=== PATIENT | female | born 1960 | race Caucasian/White ===

== ENCOUNTER 2020-05-17 14:34 | Emergency (ER) | payer BC ==
[2020-05-17 15:50] LABS: Absolute Lymphocytes (CBC) 1.4 K/uL (0.7-4.9); Basophils % 0.6 % (0-1.3); Hematocrit 40.9 % (36.0-45.0); Lymphocytes % 23.3 % (15.3-44.8); MPV 7.9 fL (7.6-11.3); RBC Red Blood Cell Count 4.12 M/uL (3.86-4.86)
--- NOTE | 2020-05-17 16:05 | RAD REPORT ---
EXAM DESCRIPTION: CT - Head Brain Wo Cont - 05/17/2020 3:32 pm CLINICAL HISTORY: Headache COMPARISON: None. TECHNIQUE: Computed axial tomography of the head was obtained. IV contrast was not requested. All CT scans are performed using dose optimization technique as appropriate and may include automated exposure control or mA/KV adjustment according to patient size. FINDINGS: An intracranial bleed is not seen . The ventricles are normal in caliber. No extra-axial fluid collection is noted. Fluid within the sinuses/ mastoids is not seen. IMPRESSION: No acute intracranial abnormality is seen. If patient's symptoms persist MRI of the bra in would be recommended.
--- NOTE | 2020-05-17 16:06 | RAD REPORT ---
EXAM DESCRIPTION: Nan Single View05/17/2020 3:17 pm CLINICAL HISTORY: sob COMPARISON: none FINDINGS: The lungs appear clear of acute infiltrate. The heart is normal size IMPRESSION: No acute abnormalities displayed
[2020-05-17 16:11] LABS: ALT/SGPT 62 U/L (12-78); AST/SGOT 58 U/L (15-37); Albumin 3.6 g/dL (3.4-5.0); Alkaline Phosphatase 50 U/L (45-117); BUN Blood Urea Nitrogen 17 mg/dL (7-18); Bicarbonate 21 mmol/L (21-32); Bilirubin Direct < 0.1 mg/dL (0-0.2); Bilirubin Total 0.3 mg/dL (0.2-1.0); Glucose Level 76 mg/dL (74-106); Magnesium 1.8 mg/dL (1.8-2.4); NT PRO-BNP 20 pg/mL (<125); Potassium 3.8 mmol/L (3.5-5.1); Protein, Total 7.1 g/dL (6.4-8.2); Sodium Level 141 mmol/L (136-145); Troponin (Emerg Dept Use Only) < 0.02 ng/mL (0.0-0.045)
--- NOTE | 2020-05-17 16:31 | EDPHYS ---
Physician Documentation [facility] Name: Veronica Stevens Age: 59 yrs Sex: Female : 1960 Arrival Date: 05/17/2020 Time: 14:39 Bed 20 Private MD: ED Physician Vincent Castillo HPI: 05/17 15:16 This 59 yrs old Female presents to ER via EMS with complaints of Anxiety. alexi 15:16 The patient complains of pain to the top of head, forehead, left frontal area and right alexi frontal area. The patient describes the headache as aching. Onset: The symptoms/episode began/occurred just prior to arrival. The patient presents to the emergency department with anxiety. Onset: The symptoms/episode began/occurred just prior to arrival, today. Past psychiatric history: none. chavez and then anxiety, bilateral leg pain,no cp and sob, very shaky . Associated signs and symptoms: The patient has no apparent associated signs or symptoms. Headache History: The patient has had previous headaches and this one is similar to previous episodes. Historical: - Allergies: 14:48 No Known Allergies; ca1 - Home Meds: 14:48 Lisinopril Oral [Active]; ca1 - PMHx: 14:48 Hypertension; colon Ca; CVA; ca1 - Immunization history:: Adult Immunizations up to date. - Social history:: Smoking status: Patient denies any tobacco usage or history of. - Family history:: not pertinent. ROS: 15:16 Constitutional: Negative for fever, chills, and weight loss, Eyes: Negative for injury, alexi pain, redness, and discharge, ENT: Negative for injury, pain, and discharge, Neck: Negative for injury, pain, and swelling, Cardiovascular: Negative for chest pain, palpitations, and edema, Respiratory: Negative for shortness of breath, cough, wheezing, and pleuritic chest pain, Abdomen/GI: Negative for abdominal pain, nausea, vomiting, diarrhea, and constipation, Back: Negative for injury and pain, : Negative for injury, bleeding, discharge, and swelling, MS/Extremity: Negative for injury and deformity, Skin: Negative for injury, rash, and discoloration, Allergy/Immunology: Negative for hives, rash, and allergies, Endocrine: Negative for neck swelling, polydipsia, polyuria, polyphagia, and marked weight changes. 15:16 Neuro: Positive for headache. 15:16 Psych: Positive for anxiety. Exam: 15:16 Constitutional: This is a well developed, well nourished patient who is awake, alert, alexi and in no acute distress. Head/Face: Normocephalic, atraumatic. Eyes: Pupils equal round and reactive to light, extra-ocular motions intact. Lids and lashes normal. Conjunctiva and sclera are non-icteric and not injected. Cornea within normal limits. Periorbital areas with no swelling, redness, or edema. ENT: Nares patent. No nasal discharge, no septal abnormalities noted. Tympanic membranes are normal and external auditory canals are clear. Oropharynx with no redness, swelling, or masses, exudates, or evidence of obstruction, uvula midline. Mucous membranes moist. Neck: Trachea midline, no thyromegaly or masses palpated, and no cervical lymphadenopathy. Supple, full range of motion without nuchal rigidity, or vertebral point tenderness. No Meningismus. Chest/axilla: Normal chest wall appearance and motion. Nontender with no deformity. No lesions are appreciated. Cardiovascular: Regular rate and rhythm with a normal S1 and S2. No gallops, murmurs, or rubs. Normal PMI, no JVD. No pulse deficits. Respiratory: Lungs have equal breath sounds bilaterally, clear to auscultation and percussion. No rales, rhonchi or wheezes noted. No increased work of breathing, no retractions or nasal flaring. Abdomen/GI: Soft, non-tender, with normal bowel sounds. No distension or tympany. No guarding or rebound. No evidence of tenderness throughout. Back: No spinal tenderness. No costovertebral tenderness. Full range of motion. Skin: Warm, dry with normal turgor. Normal color with no rashes, no lesions, and no evidence of cellulitis. MS/ Extremity: Pulses equal, no cyanosis. Neurovascular intact. Full, normal range of motion. Neuro: Awake and alert, GCS 15, oriented to person, place, time, and situation. Cranial nerves II-XII grossly intact. Motor strength 5/5 in all extremities. Sensory grossly intact. Cerebellar exam normal. Normal gait. Psych: Awake, alert, with orientation to person, place and time. Behavior, mood, and affect are within normal limits. 15:16 Musculoskeletal/extremity: Extremities: all appear grossly normal, with no appreciated pain with palpation, ROM: intact in all extremities, full active range of motion, full passive range of motion, Circulation is intact in all extremities. Sensation intact. Compartment Syndrome exam of affected extremity: is normal. DVT Exam: No signs of deep vein thrombosis. no pain, no swelling, no tenderness, negative Homans' sign noted on exam, no appreciated bluish discoloration, no erythema, no increased warmth. 15:54 ECG was reviewed by the Attending Physician. [facility] Vital Signs: 14:54 BP 140 / 98; Pulse 89; Resp 17 S; Temp 98.4(O); Pulse Ox 96% on R/A; Weight 61.23 kg ca1 (R); Height 5 ft. 0 in. (152.40 cm) (R); Pain 0/10; 15:57 BP 134 / 84; Pulse 88; Resp 16 S; Pulse Ox 96% on R/A; ca1 16:46 BP 127 / 86; Pulse 89; Resp 17 S; Pulse Ox 96% on R/A; ca1 14:54 Body Mass Index 26.37 (61.23 kg, 152.40 cm) ca1 [place] Coma Score: 15:19 Eye Response: spontaneous(4). Verbal Response: oriented(5). Motor Response: obeys [facility] commands(6). Total: 15. MDM: 14:43 Patient medically screened. [facility] 15:19 Differential diagnosis: cluster headache, cerebral vascular accident, acute psychotic alexi break, intracerebral hemorrhage, tension headache, vasomotor headache. Differential Diagnosis altered mental status. Data reviewed: vital signs, nurses notes, lab test result(s), EKG, radiologic studies, CT scan, plain films. Data interpreted: monitoring tech: rate is 89 beats/min, rhythm is regular, Pulse oximetry: on room air is 96 %. Test interpretation: by ED physician or midlevel provider: ECG, plain radiologic studies. Counseling: I had a detailed discussion with the patient and/or guardian regarding: the historical points, exam findings, and any diagnostic results supporting the discharge/admit diagnosis, lab results, radiology results, the need for outpatient follow up, for definitive care, an qa test analyst. 15:47 ED course: pt without complaint, no anxious, encouraged follow up, continue usual meds. [facility] 05/17 14:59 Order name: Basic Metabolic Panel; Complete Time: 16:26 [facility] 05/17 14:59 Order name: CBC with Diff; Complete Time: 15:59 [facility] 05/17 14:59 Order name: LFT's; Complete Time: 16: [facility] 05/17 14:59 Order name: Magnesium; Complete Time: 16:26 [facility] 05/17 14:59 Order name: NT PRO-BNP; Complete Time: 16:26 [facility] 05/17 14:59 Order name: Troponin (emerg Dept Use Only); Complete Time: 16: [facility] 05/17 14:59 Order name: XRAY Chest (1 view); Complete Time: 16: [facility] 05/17 14:59 Order name: EKG; Complete Time: 14:59 [facility] 05/17 14:59 Order name: Cardiac monitoring; Complete Time: 15:55 [facility] 05/17 14:59 Order name: EKG - Nurse/Tech; Complete Time: 15:55 [facility] 05/17 14:59 Order name: IV Saline Lock; Complete Time: 15:55 [facility] 05/17 14:59 Order name: Labs collected and sent; Complete Time: 15:55 [facility] 05/17 14:59 Order name: O2 Per Protocol; Complete Time: 15:55 [facility] 05/17 15:15 Order name: CT Head Brain wo Cont; Complete Time: 16: [facility] 05/17 14:59 Order name: O2 Sat Monitoring; Complete Time: 15:55 alexi EC:54 Rate is 81 beats/min. Rhythm is regular. QRS [place] is Normal. AL interval is normal. QRS alexi interval is normal. QT interval is normal. No Q waves. T waves are Normal. No ST changes noted. Clinical impression: NSR w/ Non-specific ST/T Changes and No evidence of ischemia. Interpreted by me. Reviewed by me. Administered Medications: No medications were administered Disposition: 05/17/20 16:30 Discharged to Home. Impression: Headache, Anxiety disorder, unspecified. - Condition is Stable. - Discharge Instructions: Panic Attacks, General Headache Without Cause, Panic Attacks, [id number], General Headache Without Cause, [id number]-uy-Emua, Generalized Anxiety Disorder. - Prescriptions for Hydroxyzine HCl 25 mg Oral Tablet - take 1 tablet by ORAL route every 6 hours As needed; 30 tablet. - Medication Reconciliation Form, Thank You Letter, Antibiotic Education, Prescription Opioid Use form. - Follow up: Private Physician; When: 2 - 3 days; Reason: Recheck today's complaints, Continuance of care, Re-evaluation by your physician. - Problem is new. - Symptoms have improved. Signatures: Dispatcher [employer] Vincent Lopez MD MD cha Acob, Cheryl, RN RN ca1 Corrections: (The following items were deleted from the chart) 16:47 16:30 05/17/2020 16:30 Discharged to Home. Impression: Headache; Anxiety disorder, ca1 unspecified. Condition is Stable. Forms are Medication Reconciliation Form, Thank You Letter, Antibiotic Education, Prescription Opioid Use. Follow up: Private Physician; When: 2 - 3 days; Reason: Recheck today's complaints, Continuance of care, Re-evaluation by your physician. Problem is new. Symptoms have improved. alexi
--- NOTE | 2020-05-17 16:31 | ER ---
Nurse's Notes [facility] Name: Veronica Stevens Age: 59 yrs Sex: Female : 1960 Arrival Date: 05/17/2020 Time: 14:39 Bed 20 Private MD: Diagnosis: Headache;Anxiety disorder, unspecified Presentation: 05/17 14:40 Chief complaint: EMS states: C/O AMS and SOB. Upon arrival at the scene has full body ca1 muscle cramps and hyperventilating. Denies hx of anxiety. Hx of CVA and colon cancer. VS BP 162/100, HR 115, BGL 105, SPO2 99% RA. Negative on stroke scale. She denies recollection of first 40 minutes of interaction with us. Given 2 mg Ativan IV. G20 LFA. Coronavirus screen: Client denies travel out of the [place] in the last 14 days. At this time, the client does not indicate any symptoms associated with coronavirus-19. Ebola Screen: Patient negative for fever greater than or equal to 101.5 degrees Fahrenheit, and additional compatible Ebola Virus Disease symptoms Patient denies exposure to infectious person. Patient denies travel to an Ebola-affected area in the 21 days before illness onset. No symptoms or risks identified at this time. Initial Sepsis Screen: Does the patient meet any 2 criteria? No. Patient's initial sepsis screen is negative. Does the patient have a suspected source of infection? No. Patient's initial sepsis screen is negative. Risk Assessment: Do you want to hurt yourself or someone else? Patient reports no desire to harm self or others. Onset of symptoms was May 17, 2020. Care prior to arrival: Medication(s) given: Normal saline infusion, 500 mL, Ativan 2mg IV initiated. 20 GA, in the left forearm, Glucose check: 105. 14:40 Method Of Arrival: EMS: [facility] ca1 14:40 Acuity: PUSHPA 3 ca1 Triage Assessment: 14:54 General: Appears in no apparent distress. comfortable, Behavior is calm, cooperative, ca1 appropriate for age. Pain: Denies pain. EENT: No deficits noted. No signs and/or symptoms were reported regarding the EENT system. Neuro: Level of Consciousness is awake, alert, obeys commands, Oriented to person, place, time, situation, Appropriate for age. Neuro: Forming Process Worker are equal bilaterally Moves all extremities. Speech is normal, Facial symmetry appears normal, Pupils are PERRLA, Intact. Cardiovascular: Heart tones S1 S2 present Capillary refill < 3 seconds Patient's skin is warm and dry. Respiratory: Airway is patent Respiratory effort is even, unlabored, Respiratory pattern is regular, symmetrical. GI: Abdomen is round non-distended, Bowel sounds present X 4 quads. Abd is soft and non tender X 4 quads. : No deficits noted. No signs and/or symptoms were reported regarding the genitourinary system. Derm: Skin is intact, is healthy with good turgor, Skin is pink, warm \T\ dry. Musculoskeletal: Circulation, motion, and sensation intact. Capillary refill < 3 seconds. Historical: - Allergies: 14:48 No Known Allergies; ca1 - Home Meds: 14:48 Lisinopril Oral [Active]; ca1 - PMHx: 14:48 Hypertension; colon Ca; CVA; ca1 - Immunization history:: Adult Immunizations up to date. - Social history:: Smoking status: Patient denies any tobacco usage or history of. - Family history:: not pertinent. Screenin:56 Abuse screen: Denies threats or abuse. Denies injuries from another. Nutritional ca1 screening: No deficits noted. Tuberculosis screening: No symptoms or risk factors identified. Fall Risk IV access (20 points). Assessment: 14:56 Reassessment: see triage notes. ca1 15:43 Reassessment: Patient appears in no apparent distress at this time. Patient and/or ca1 family updated on plan of care and expected duration. Pain level reassessed. Patient is alert, oriented x 3, equal unlabored respirations, skin warm/dry/pink. 16:46 Reassessment: Patient appears in no apparent distress at this time. Patient is alert, ca1 oriented x 3, equal unlabored respirations, skin warm/dry/pink. Patient states feeling better. Vital Signs: 14:54 BP 140 / 98; Pulse 89; Resp 17 S; Temp 98.4(O); Pulse Ox 96% on R/A; Weight 61.23 kg ca1 (R); Height 5 ft. 0 in. (152.40 cm) (R); Pain 0/10; 15:57 BP 134 / 84; Pulse 88; Resp 16 S; Pulse Ox 96% on R/A; ca1 16:46 BP 127 / 86; Pulse 89; Resp 17 S; Pulse Ox 96% on R/A; ca1 14:54 Body Mass Index 26.37 (61.23 kg, 152.40 cm) ca1 [place] Coma Score: 15:19 Eye Response: spontaneous(4). Verbal Response: oriented(5). Motor Response: obeys [facility] commands(6). Total: 15. ED Course: 14:39 Patient arrived in ED. ca1 14:43 Vincent Castillo MD is Attending Physician. [facility] 14:48 Triage completed. ca1 14:48 Arm band placed on right wrist. ca1 14:50 Marcie Childs, GLORIA is Primary Nurse. ca1 14:56 Patient has correct armband on for positive identification. Bed in low position. Call ca1 light in reach. Side rails up X2. Pulse ox on. NIBP on. Warm blanket given. 15:00 No provider procedures requiring assistance completed. Maintain EMS IV. Dressing ca1 intact. Good blood return noted. Site clean \T\ dry. Gauge \T\ site: g20 LFA. 15:18 XRAY Chest (1 view) In Process Unspecified. EDMS 15:32 CT Head Brain wo Cont In Process Unspecified. EDMS 15:45 Initial lab(s) drawn, by ED staff, sent to lab. ca1 16:47 IV discontinued, intact, bleeding controlled, No redness/swelling at site. Pressure ca1 dressing applied. Administered Medications: No medications were administered Outcome: 16:30 Discharge ordered by . [facility] 16:47 Discharged to home ambulatory, with family. ca1 16:47 Condition: stable 16:47 Discharge instructions given to patient, Instructed on discharge instructions, follow up and referral plans. no drinking with medication, no driving heavy equipment, medication usage, Demonstrated understanding of instructions, follow-up care, medications, Prescriptions given X 1. 16:47 Patient left the ED. ca1 Signatures: Dispatcher [employer] EDMS Vincent Castillo MD MD cha Acob, Cheryl, GLORIA RN ca1 Corrections: (The following items were deleted from the chart) 14:50 14:40 Care prior to arrival: Medication(s) given: Ativan 2mg IV initiated. 20 GA, in ca1 the left forearm, Glucose check: 105 ca1 15:56 15:40 Initial lab(s) drawn, by ED staff, sent to lab. ca1 ca1
== END 2020-05-17 16:47 | disposition home or self-care (01) ==
LOC: ER 14:34
DX: F41.9 Anxiety disorder, unspecified (principal); I10 Essential (primary) hypertension; Z85.038 Personal history of other malignant neoplasm of large intestine; Z86.73 Personal history of transient ischemic attack (TIA), and cerebral infarction without residual deficits
CPT/HCPCS: 36415; 70450; 71045; 80048; 80076; 83735; 83880; 84484; 85025; 93005; 99284

== ENCOUNTER 2021-08-23 08:00 | Emergency (ER) | payer BC ==
--- OUTSIDE RECORDS SUMMARY | 2021-08-23 08:03 | XMS REPORT | Continuity of Care Document ---
:1960 Author Organization [facility] t Address [address] [place] [address] Care Team Providers Name Role Phone LAKEISHA Attending Clinician Unavailable MD LIAM SUAZO Attending Clinician Unavailable Argenis Banerjee Attending Clinician Unavailable LAKEISHA Admitting Clinician Unavailable MD LIAM SUAZO Admitting Clinician Unavailable Problems This patient has no known problems. Allergies, Adverse Reactions, Alerts This patient has no known allergies or adverse reactions. Medications This patient has no known medications. Procedures This patient has no known procedures. Encounters Start End Encounter Admission Attending Care Care Encounter Source Date/Time Date/Time Type Type Clinicians Facility Department ID 2021-05-14 2021-05-15 Outpatient LAKEISHA [facility] [id number] [place] 00:00:00 00:00:00 [facility] [address] 2020-02-11 2020-02-11 Outpatient REGGIE Banerjee [id number] [facility] 08:33:00 08:33:[address] [id number] Results Test Description Test Time Test Comments Results Result Comments Source SARS-CoV-2 (COVID-19) RNA [Presence] in Respiratory sp ecimen by 2021-05-14 21:58:10 BONNY with probe detection Test Item Value Reference Range Interpretation Comme nts SARS-CoV-2 (COVID-19) RNA [Presence] in Respiratory Not detected No t-Detected specimen by BONNY with probe detection (test code = 56615-5) Whether patient is employed in a healthcare setting (test code = 34151-6) Whether the patient has symptoms related to condition of interest (test code = 57080-9) Patient was hospitalized because of this condition (test code = 12237-4) Whether the patient was admitted to intensive care unit (ICU) for condition of interest (test code = 85581-6) Whether patient resides in a congregate care setting (test code = 43516-0)
[2021-08-23] MEDS ORDERED: ONDANSETRON 4 MG/2 ML VIAL ONE (08:50)
[2021-08-23] MEDS ORDERED: LORazepam 2 MG/ML VIAL ONE (08:50)
[2021-08-23] MEDS ORDERED: FOLIC ACID 1 MG, MULTIVITAMINS INJ 10 ML, THIAMINE HCL 100 MG in NA CHLORIDE 0.9% 1,000 ML IV ONE (09:00)
[2021-08-23 09:02] LABS: Absolute Lymphocytes (CBC) 0.9 K/uL (0.7-4.9); Basophils % 0.3 % (0-1.3); Hematocrit 46.2 % (36.0-45.0); Lymphocytes % 7.8 % (15.3-44.8); MPV 8.1 fL (7.6-11.3); RBC Red Blood Cell Count 4.76 M/uL (3.86-4.86)
[2021-08-23 09:08] LABS: Protime INR 0.96
[2021-08-23 09:20] LABS: ALT/SGPT 31 U/L (12-78); AST/SGOT 43 U/L (15-37); Albumin 4.1 g/dL (3.4-5.0); Alkaline Phosphatase 77 U/L (45-117); BUN Blood Urea Nitrogen 16 mg/dL (7-18); Bicarbonate 21 mmol/L (21-32); Bilirubin Direct 0.3 mg/dL (0-0.2); Bilirubin Total 0.8 mg/dL (0.2-1.0); Glucose Level 109 mg/dL (74-106); Potassium 3.6 mmol/L (3.5-5.1); Protein, Total 8.3 g/dL (6.4-8.2); Sodium Level 139 mmol/L (136-145)
[2021-08-23] MEDS ORDERED: NA CHLORIDE 0.9% 1,000 ML ONE (09:39)
[2021-08-23] MEDS ORDERED: FAMOTIDINE 20 MG/2 ML VIAL IV ONE (10:09)
--- NOTE | 2021-08-23 12:01 | EDPHYS ---
Physician Documentation [facility] Name: Veronica Stevens Age: 60 yrs Sex: Female : 1960 Arrival Date: 08/23/2021 Time: 08:01 Bed 14 Private MD: ED Physician Scott Russo HPI: 08/23 08:59 This 60 yrs old Female presents to ER via Wheelchair with complaints of Dehydration, pm1 Alcohol Withdrawal. 08:59 The patient presents to the emergency department with a history of substance abuse, pm1 Type: Alcohol, 0.5 mini bottle of rum per day, Last drink was last night. Associated signs and symptoms: Pertinent positives; abdominal pain, nausea, vomiting, Pertinent negatives: chest pain, fever, homicidal ideation, shortness of breath, suicide ideation. Severity of symptoms: in the emergency department the symptoms are worse threw away her alcohol. The patient has experienced a previous episode, approximately 1 years ago. The patient has not recently seen a physician. Patient reports that she wants to stop drinking alcohol. Historical: - Allergies: 08:34 Codeine; iw - Home Meds: 08:34 Lisinopril Oral [Active]; iw - PMHx: 08:34 COLON CA; CVA; Hypertension; iw - PSHx: 08:34 section; iw - Immunization history:: Client reports having NOT received the Covid vaccine. - Social history:: Smoking status: Patient denies any tobacco usage or history of. Patient uses alcohol, on a daily basis. ROS: 08:59 Constitutional: Negative for fever, chills, and weight loss, Cardiovascular: Negative pm1 for chest pain, palpitations, and edema, Respiratory: Negative for shortness of breath, cough, wheezing, and pleuritic chest pain. 08:59 MS/Extremity: Negative for injury and deformity, Skin: Negative for injury, rash, and discoloration, Neuro: Negative for headache, weakness, numbness, tingling, and seizure. 08:59 Abdomen/GI: Positive for abdominal pain, nausea and vomiting, Negative for diarrhea, constipation. 08:59 All other systems are negative. Exam: 08:59 Constitutional: This is a well developed, well nourished patient who is awake, alert, pm1 and in no acute distress. Head/Face: Normocephalic, atraumatic. 08:59 Back: No spinal tenderness. No costovertebral tenderness. Full range of motion. Skin: Warm, dry with normal turgor. Normal color with no rashes, no lesions, and no evidence of cellulitis. MS/ Extremity: Pulses equal, no cyanosis. Neurovascular intact. Full, normal range of motion. 08:59 Eyes: Exam is negative for acute changes, Extraocular movements: no acute changes, Conjunctiva: no acute changes, no injection, Sclera: no acute changes, icterus, is not appreciated. 08:59 Cardiovascular: Rate: tachycardic, actual rate is 108 bpm, Rhythm: regular, Pulses: no pulse deficits are appreciated, Heart sounds: normal, normal S1and S2. 08:59 Respiratory: Exam negative for acute changes, respiratory distress, shortness of breath, Breath sounds: are clear throughout. 08:59 Abdomen/GI: Inspection: abdomen appears normal, Bowel sounds: normal, Palpation: abdomen is soft and non-tender. 08:59 Neuro: Exam negative for acute changes, Orientation: is normal, Mentation: is normal, Motor: moves all fours. Vital Signs: 08:32 BP 122 / 106; Pulse 108; Resp 18; Temp 97.6; Pulse Ox 100% on R/A; Weight 68.04 kg; iw Height 5 ft. 0 in. (152.40 cm); 09:30 BP 157 / 95; Pulse 98; Resp 22; Temp 97.6(C); Pulse Ox 100% on R/A; sl2 10:00 BP 143 / 92; Pulse 101; Resp 20; Pulse Ox 100% on R/A; sl2 10:15 BP 143 / 92; Pulse 92; Resp 20; Temp 97.8; Pulse Ox 100% ; sl2 11:15 BP 145 / 90; Pulse 91; Resp 18; Pulse Ox 99% on R/A; sl2 12:15 BP 150 / 85; Pulse 88; Resp 18; Temp 97.9(O); Pulse Ox 100% on R/A; sl2 08:32 Body Mass Index 29.29 (68.04 kg, 152.40 cm) iw MDM: 08:40 Patient medically screened. pm1 10:18 Data reviewed: vital signs. Data interpreted: Pulse oximetry: on room air is 100 %. pm1 Interpretation: normal. 11:26 ED course: Burning abdominal pain resolved with Pepcid. Patient feels better and would pm1 like to go home. Will discharge the patient after completion of IV fluids. Patient has been drinking more than her usual single cocktail drink per night due to work stress for the past 3 weeks. She normally has one cocktail drink per night. Patient wants to stop drinking and has taken medications in the past to stop. She would like medication to help her stop drinking, therefore will prescribe Librium taper. 11:26 Counseling: I had a detailed discussion with the patient and/or guardian regarding: the pm1 historical points, exam findings, and any diagnostic results supporting the discharge/admit diagnosis, lab results, the need for outpatient follow up, rehabilitation center, to return to the emergency department if symptoms worsen or persist or if there are any questions or concerns that arise at home. 08/23 08:42 Order name: Acetaminophen; Complete Time: 09:36 pm1 08/23 08:42 Order name: Basic Metabolic Panel; Complete Time: 09:36 pm1 08/23 08:42 Order name: CBC with Diff; Complete Time: 09:03 pm1 08/23 08:42 Order name: ETOH Level; Complete Time: 09:36 pm1 08/23 08:42 Order name: Hepatic Function; Complete Time: 09:36 pm1 08/23 08:42 Order name: PT-INR; Complete Time: 09:09 pm1 08/23 08:42 Order name: Ptt, Activated; Complete Time: 09:09 pm1 08/23 08:42 Order name: Salicylate; Complete Time: 09:39 pm1 08/23 08:42 Order name: Urine Drug Screen pm1 08/23 08:42 Order name: EKG; Complete Time: 08:43 pm1 08/23 08:42 Order name: EKG - Nurse/Tech; Complete Time: 08:58 pm1 08/23 08:42 Order name: IV Saline Lock; Complete Time: 08:57 pm1 08/23 08:42 Order name: Labs collected and sent; Complete Time: 08:57 pm1 Administered Medications: 09:01 Drug: Ativan (LORazepam) 2 mg Route: IVP; Site: right antecubital; iw 09:59 Follow up: Response: No adverse reaction; Anxiety decreased sl2 09:01 Drug: Zofran (Ondansetron) 4 mg Route: IVP; Site: right antecubital; iw 09:58 Follow up: Response: No adverse reaction; Nausea is decreased sl2 09:35 Drug: Banana Bag - (NS 0.9% 1000 ml, foLIC Acid 1 mg, Thiamine 100 mg, Multivitamin 1 sl2 amp) Route: IV; Rate: calculated rate; Site: right antecubital; 09:59 Follow up: Response: No adverse reaction; IV Status: Infusion continued sl2 09:35 Drug: NS 0.9% 1000 ml Route: IV; Rate: 1000 ml; Site: right antecubital; sl2 09:57 Follow up: Response: No adverse reaction; IV Status: Infusion continued sl2 10:01 Drug: Pepcid (famotidine) 20 mg Route: IVP; Site: right antecubital; sl2 Disposition: 08/24 09:19 Co-signature as Attending Physician, Scott Russo MD I agree with the assessment and sp3 plan of care. Disposition Summary: 08/23/21 12:00 Discharge Ordered Location: Home pm1 Problem: new pm1 Symptoms: have improved pm1 Condition: Stable pm1 Diagnosis - Alcohol abuse - mild withdrawl pm1 Followup: pm1 - With: Emergency Department - When: As needed - Reason: Worsening of condition Followup: pm1 - With: Private Physician - When: 2 - 3 days - Reason: Recheck today's complaints, Continuance of care, Re-evaluation by your physician Discharge Instructions: - Discharge Summary Sheet pm1 - Alcohol Abuse and Nutrition pm1 - Alcohol Abuse and Dependence Information, Adult pm1 Forms: - Medication Reconciliation Form pm1 - Thank You Letter pm1 - Antibiotic Education pm1 - Prescription Opioid Use pm1 Prescriptions: - chlordiazepoxide HCl 25 mg Oral capsule - take 1 capsule by ORAL route as directed Day:1 Librium 25 mg every 6 hours pm1 scheduled, Day 2: Librium 25 mg every 8 hours scheduled, Day 3: Librium 25 mg every 12 hours scheduled, Day 4 Librium 25 mg at bedtime schedule, Day 5: Librium 25 mg at bedtime scheduled; 11 capsule; Refills: 0, Product Selection Permitted - ondansetron 4 mg Oral tablet,disintegrating - place 1 tablet by TRANSLINGUAL route every 8 hours As needed; 12 tablet; pm1 Refills: 0, Product Selection Permitted - Pepcid 20 mg Oral Tablet - take 1 tablet by ORAL route every 12 hours for 10 days; 20 tablet; Refills: 0, pm1 Product Selection Permitted Signatures: Dispatcher [employer] Cathi Duvall, RN RN iw Gus Núñez, LEAD C DEVELOPER LEAD C DEVELOPER pm1 Scott Russo MD MD sp3 Aleah Vargas RN RN sl2 Corrections: (The following items were deleted from the chart) 08/23 08:59 08:42 Suicide Screening ([place]) ordered. pm1 pm1
--- NOTE | 2021-08-23 12:01 | ER ---
Nurse's Notes [facility] Name: Veronica Stevens Age: 60 yrs Sex: Female : 1960 Arrival Date: 08/23/2021 Time: 08:01 Bed 14 Private MD: Diagnosis: Alcohol abuse-mild withdrawl Presentation: 08/23 08:32 Chief complaint: Patient states: vomiting and dry heaving since last night, mid abd iw pain, chills, stopped drinking last night,is normally a daily drinker, drinks half a bottle of rum per day. Coronavirus screen: At this time, the client does not indicate any symptoms associated with coronavirus-19. Ebola Screen: Patient negative for fever greater than or equal to 101.5 degrees Fahrenheit, and additional compatible Ebola Virus Disease symptoms Patient denies exposure to infectious person. Patient denies travel to an Ebola-affected area in the 21 days before illness onset. Initial Sepsis Screen: Does the patient meet any 2 criteria? No. Patient's initial sepsis screen is negative. Does the patient have a suspected source of infection? No. Patient's initial sepsis screen is negative. Risk Assessment: Do you want to hurt yourself or someone else? Patient reports no desire to harm self or others. Onset of symptoms was August 22, 2021. 08:32 Method Of Arrival: Wheelchair iw 08:32 Acuity: PUSHPA 2 iw Historical: - Allergies: 08:34 Codeine; iw - Home Meds: 08:34 Lisinopril Oral [Active]; iw - PMHx: 08:34 COLON CA; CVA; Hypertension; iw - PSHx: 08:34 section; iw - Immunization history:: Client reports having NOT received the Covid vaccine. - Social history:: Smoking status: Patient denies any tobacco usage or history of. Patient uses alcohol, on a daily basis. Screenin:33 Abuse screen: Denies threats or abuse. Denies injuries from another. Nutritional sl2 screening: No deficits noted. Tuberculosis screening: No symptoms or risk factors identified. Fall Risk None identified. No fall in past 12 months (0 pts). No secondary diagnosis (0 pts). IV access (20 points). Ambulatory Aid- None/Bed Rest/Nurse Assist (0 pts). Gait- Normal/Bed Rest/Wheelchair (0 pts) Mental Status- Oriented to own ability (0 pts). Total Alvarez Fall Scale indicates No Risk (0-24 pts). Assessment: 09:33 General: Appears uncomfortable, well developed, Behavior is cooperative, appropriate sl2 for age. 09:33 Pain:. Neuro: No deficits noted. Level of Consciousness is awake, alert, obeys sl2 commands, Oriented to person, place, time, situation, Appropriate for age. Cardiovascular: No deficits noted. Cardiovascular: Rhythm is regular. Respiratory: No deficits noted. Respiratory: Airway is patent Trachea midline Respiratory effort is even, unlabored, Respiratory pattern is regular, symmetrical, Breath sounds are clear bilaterally. GI: Reports nausea, vomiting, Patient currently denies diarrhea. : No deficits noted. No signs and/or symptoms were reported regarding the genitourinary system. EENT: No deficits noted. No signs and/or symptoms were reported regarding the EENT system. Derm: No deficits noted. No signs and/or symptoms reported regarding the dermatologic system. Musculoskeletal: No deficits noted. Vital Signs: 08:32 BP 122 / 106; Pulse 108; Resp 18; Temp 97.6; Pulse Ox 100% on R/A; Weight 68.04 kg; iw Height 5 ft. 0 in. (152.40 cm); 09:30 BP 157 / 95; Pulse 98; Resp 22; Temp 97.6(C); Pulse Ox 100% on R/A; sl2 10:00 BP 143 / 92; Pulse 101; Resp 20; Pulse Ox 100% on R/A; sl2 10:15 BP 143 / 92; Pulse 92; Resp 20; Temp 97.8; Pulse Ox 100% ; sl2 11:15 BP 145 / 90; Pulse 91; Resp 18; Pulse Ox 99% on R/A; sl2 12:15 BP 150 / 85; Pulse 88; Resp 18; Temp 97.9(O); Pulse Ox 100% on R/A; sl2 08:32 Body Mass Index 29.29 (68.04 kg, 152.40 cm) iw ED Course: 08:01 Patient arrived in ED. as 08:34 Triage completed. iw 08:35 Arm band placed on. iw 08:38 Gus Núñez NP is PHCP. pm1 08:38 Scott Russo MD is Attending Physician. pm1 08:51 Initial lab(s) drawn, by me, sent to lab. Inserted saline lock: 22 gauge in right dh3 antecubital area, using aseptic technique. Blood collected. 09:30 Aleah Vargas, RN is Primary Nurse. sl2 09:33 Patient has correct armband on for positive identification. Bed in low position. Call sl2 light in reach. Side rails up X2. 09:33 No provider procedures requiring assistance completed. sl2 12:36 IV discontinued, intact, bleeding controlled, No redness/swelling at site. Pressure sl2 dressing applied. Administered Medications: 09:01 Drug: Ativan (LORazepam) 2 mg Route: IVP; Site: right antecubital; iw 09:59 Follow up: Response: No adverse reaction; Anxiety decreased sl2 09:01 Drug: Zofran (Ondansetron) 4 mg Route: IVP; Site: right antecubital; iw 09:58 Follow up: Response: No adverse reaction; Nausea is decreased sl2 09:35 Drug: Banana Bag - (NS 0.9% 1000 ml, foLIC Acid 1 mg, Thiamine 100 mg, Multivitamin 1 sl2 amp) Route: IV; Rate: calculated rate; Site: right antecubital; 09:59 Follow up: Response: No adverse reaction; IV Status: Infusion continued sl2 09:35 Drug: NS 0.9% 1000 ml Route: IV; Rate: 1000 ml; Site: right antecubital; sl2 09:57 Follow up: Response: No adverse reaction; IV Status: Infusion continued sl2 10:01 Drug: Pepcid (famotidine) 20 mg Route: IVP; Site: right antecubital; sl2 Outcome: 12:00 Discharge ordered by . pm1 12:36 Discharged to home with family. sl2 12:36 Condition: stable 12:36 Discharge instructions given to patient, family, Instructed on discharge instructions, follow up and referral plans. medication usage, Demonstrated understanding of instructions, follow-up care, medications, Prescriptions given X 3. 12:37 Patient left the ED. sl2 Signatures: Evelia Guadalupe Irene, RN RN Gus Núñez, SELINA FLATWORK FOLDER pm1 Candis Ch 3 Aleah Vargas, GLORIA RN sl2
[2021-08-23 12:40] LABS: Barbiturates NEGATIVE (NEGATIVE); Benzodiazepines NEGATIVE (NEGATIVE); Cocaine NEGATIVE (NEGATIVE); METHAMPHETAM NEGATIVE (NEGATIVE); Methadone NEGATIVE (NEGATIVE); Opiates NEGATIVE (NEGATIVE); Phencyclidine NEGATIVE (NEGATIVE); THC Cannibis NEGATIVE (NEGATIVE)
[2021-08-23 12:52] VITALS: BP 150/85; TEMP 97.9; O2SAT 100
== END 2021-08-23 12:37 | disposition home or self-care (01) ==
LOC: ER 08:00
DX: F10.139 Alcohol abuse with withdrawal, unspecified (principal); I10 Essential (primary) hypertension; Z88.5 Allergy status to narcotic agent; Z86.73 Personal history of transient ischemic attack (TIA), and cerebral infarction without residual deficits
CPT/HCPCS: 96365; 93005 ×2; 85025; 80048; 36415; 80320; 80329 ×2; 85610; 80076; 85730; 80307; 96375; 99284; J3411; J7030 ×2; J2405

== ENCOUNTER 2022-06-07 12:56 | Emergency (ER) | payer BC ==
--- OUTSIDE RECORDS SUMMARY | 2022-06-07 13:04 | XMS REPORT | Continuity of Care Document ---
:1960 Author Organization [facility] t Address [address] [place] [address] Care Team Providers Name Role Phone Susan Walter MD Primary Care Physician Jaret Rollins Attending Clinician GIUSEPPE SUAZO Attending Clinician Unavailable MD GIUSEPPE SUAZO Attending Clinician UnavailAakash Naqvi Attending Clinician Unavailable Jaret Rollins Admitting Clinician GIUSEPPE SUAZO Admitting Clinician Unavailable MD GIUSEPPE SUAZO Admitting Clinician Unavailtim padron Problems Condition Condition Condition Status Onset Resolution Last Treating Co mments Source Name Details Category Date Date Treatment Clinician Date ACUTE ACUTE Diagnosis Active 2022-02-15 Me moria RIGHT-SIDE RIGHT-SIDE 02-10 15:01:00 l D D 00:00: Froilan WEAKNESS, WEAKNESS, 00 HYPERTENSI HYPERTENSI VE VE Active 02/10/2022 [facility] STROKE STROKE Diagnosis Active 2022-02-10 Me moria SYMPTOMS SYMPTOMS 02-10 12:05:00 l Active 00:00: [place] 02/10/2022 00 [facility] Alcohol Alcohol Disease Active Methodi withdrawal withdrawal 8-19 st syndrome syndrome 00:00: Hospit a with with 00 l complicati complicati on on Carcinoma Carcinoma Problem Active 2013-092022-02-15 Memoria 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 [facility] Essential Essential Problem Active 2022-04-04 Memoria hypertensi hypertensi 04:10:09 l on on Active [place] Problem 04/04/2022 eCW: Daniel Gifford MD, PA Endocrine Problem Active 2022-04-04 Me moria disorder Endocrine 04:10:09 l disorder [place] Active Problem 04/04/2022 eCW: Daniel Gifford MD, PA Insomnia Insomnia Problem Active 2022-04-04 Memoria Active 04:10:09 l Problem [place] 04/04/2022 eCW: Daniel Gifford MD, PA History of History Problem Active 2022-04-04 Memoria gestationa of 04:10:09 l l diabetes gestationa He rmann l diabetes Active Problem 04/04/2022 eCW: Daniel Gifford MD, PA Paresthesi Paresthes Problem Active 2022-04-04 Memoria a of skin ia of skin 04:10:09 l Active [place] Problem 04/04/2022 eCW: Daniel Gifford MD, PA Allergic Allergic Problem Active 2022-04-04 Memoria rhinitis rhinitis 04:10:09 l Active [place] Problem 04/04/2022 eCW: Daniel Gifford MD, PA Menopausal Menopausa Problem Active 2022-04-04 Memoria disorder l disorder 04:10:09 l Active [place] Problem 04/04/2022 eCW: Daniel Gifford MD, PA History of History Problem Active 2022-04-04 Memoria alcoholism of 04:10:09 l alcoholism Ramo n Active Problem 04/04/2022 eCW: Daniel Gifford MD, PA Hypothyroi Hypothyro Problem Active 2022-04-04 Memoria d id Active 04:10:09 l Problem [place] 04/04/2022 eCW: Daniel Gifford MD, PA MARION MARION Problem Active 2022-04-04 Memor ia (generaliz (generaliz 04:10:09 l ed anxiety ed anxiety He rmann disorder) disorder) Active Problem 04/04/2022 eCW: Daniel Gifford MD, PA Dysuria Dysuria Problem Active 2022-04-04 Me moria Active 04:10:09 l Problem [place] 04/04/2022 eCW: Daniel Gifford MD, PA Elevated Elevated Problem Active 2018-08-13 Memoria blood blood 05:43:07 l pressure pressure Ramo n reading reading Active Problem 08/13/2018 eCW: Daniel Gifford MD, PA Unspecifie Unspecifi Problem Active 2018-08-13 Memoria d ed 05:43:07 l endocrine endocrine Herm paras disorder disorder Active Problem 08/13/2018 eCW: Daniel Gifford MD, PA Bloating Bloating Diagnosis Active 2018-08-12 Memoria Active 05:51:23 l Diagnosis [place] 08/12/2018 eCW: Daniel Gifford MD, PA Lower Lower Diagnosis Active 2018-08-12 Mem oria abdominal abdominal 05:51:23 l pain pain [place] Active Diagnosis 08/12/2018 eCW: Daniel Gifford MD, PA Rhinosinus Diagnosis Active 2018-08-09 Memoria itis Rhinosinus 05:30:52 l itis [place] Active Diagnosis 08/09/2018 eCW: Daniel Gifford MD, PA Hot Hot Diagnosis Active 2018-10-27 Mem oria flashes flashes 05:11:27 l Active [place] Diagnosis 10/27/2018 eCW: Daniel Gifford MD, PA Mood Mood Diagnosis Active 2018-10-27 Mem oria swings swings 05:11:27 l Active [place] Diagnosis 10/27/2018 eCW: Daniel Gifford MD, PA Abnormal Abnormal Diagnosis Active 2021-09-14 Memoria physical physical 05:32:36 l evaluation evaluation He rmann Active Diagnosis 09/14/2021 eCW: Daniel Gifford MD, PA Breast Breast Diagnosis Active 2021-09-14 Me moria cancer cancer 05:32:36 l screening screening Herm paras Active Diagnosis 09/14/2021 eCW: Daniel Gifford MD, PA Post-menop Post-mariah Diagnosis Active 2021-09-14 Memoria ausal pausal 05:32:36 l Active [place] Diagnosis 09/14/2021 eCW: Daniel Gifford MD, PA Alcoholism Alcoholis Problem Active 2022-04-04 Memoria m Active 04:10:09 l Problem [place] 04/04/2022 eCW: Daniel Gifford MD, PA Encounter Encounter Problem Active 2022-04-04 Memoria for for 04:10:09 l gynecologi gynecologi He rmann jamil jamil examinatio examinatio n n (general) (general) (routine) (routine) without without abnormal abnormal findings findings Active Problem 04/04/2022 eCW: Daniel Gifford MD, PA Recent Recent Problem Active 2022-04-04 Tae cyndi urinary urinary 04:10:09 l tract tract [place] infection infection Active Problem 04/04/2022 eCW: Daniel Gifford MD, PA Postmenopa Postmenop Problem Active 2022-04-04 Memoria usal ausal 04:10:09 l bleeding bleeding Ramo n Active Problem 04/04/2022 eCW: Daniel Gifford MD, PA Benign Benign Diagnosis Active 2014-08-31 Me moria paroxysmal paroxysmal 06:17:37 l positional positional He ann vertigo vertigo Active Diagnosis 08/31/2014 eCW: Daniel Gifford MD, PA Elevated Elevated Diagnosis Active 2014-08-31 Memoria blood blood 06:17:37 l pressure pressure Ramo n reading reading without without diagnosis diagnosis of of hypertensi hypertensi on on Active Diagnosis 08/31/2014 eCW: Daniel Gifford MD, PA Nausea Nausea Diagnosis Active 2015-01-13 Me moria Active 04:11:05 l Diagnosis [place] 01/13/2015 eCW: Daniel Gifford MD, PA Unspecifie Unspecifi Diagnosis Active 2016-05-28 Memoria d ed 04:18:52 l endocrine endocrine Herm paras disorder disorder Active Diagnosis 05/28/2016 eCW: Daniel Gifford MD, PA Hot flash, Hot Diagnosis Active 2016-04-01 Memoria menopausal flash, 04:26:13 l menopausal Ramo n Active Diagnosis 04/01/2016 eCW: Daniel Gifford MD, PA Alcohol Alcohol Problem Active 2022-02-15 Me moria intoxicati intoxicati 08:17:59 l on on [place] (disorder) (disorder) Active Problem 02/15/2022 [facility] WEAKNESS WEAKNESS Diagnosis Active 2022-02-15 Memoria Active 15:01:00 l [facility] HYPERTENSI HYPERTENS Diagnosis Active 2022-02-15 Memoria VE RICKY 15:01:00 l EMERGENCY EMERGENCY [facility] paras Active [facility] Allergies, Adverse Reactions, Alerts Allergy Allergy Status Severity Reaction(s) Onset Inactive Treating Comm ents Source Name Type Date Date Clinician codeine codeine Active vomiting Memori a 4-06 l 00:00: [place]ilan 00 Codeine Propensi Active Other (See vertigo Me thodi ty to Comments) 04-24 st adverse 00:00: Hospita reaction 00 l s to drug Family History Family Member Diagnosis Comments Start Date Stop Date Source Natural father Alcohol abuse [facility] Social History Social Habit Start Date Stop Date Quantity Comments Source Social History 2022-02-10 2022-02-10 [facility] ermann 19:29:53 19:29:53 Alcohol intake 2021-05-14 2021-05-14 Current drinker Metho dist 00:00:00 00:00:00 of [facility] (finding) Tobacco use and 2019-04-24 2019-04-24 Smokeless tobacco Me thodist exposure 00:00:00 00:00:00 non-user Hospital TobaccoUse: 2015-01-07 2015-01-07 [facility] paras 00:00:00 00:00:00 Sex Ass[birth year] At [birth year] [employer] 00:00:00 00:00:00 Hospital Smoking Status Start Date Stop Date Source Never smoked tobacco [employer] [facility] Medications Ordered Filled Start Stop Current Ordering Indication Dosage Frequency Signature Comments Components Source Medication Medication Date Date Medication? Clinician (SIG) Name Name potassium No Notes: Memori a phosphate-s -19 (Same as: l odium 17:00: Phos-NaK) [place] phosphate 00 Each 1.5 250 mg-280 gm pkt has mg-160 mg 250mg oral powder phosphorou for s. Mix reconstitut w/2.5oz ion water and stir. potassium 2021- Yes 1 Pack, Memor ia phosphate-s 5-19 PO, l odium 16:46: TID-Meals, Ramo n phosphate 00 # 6 250 mg-280 packet, 0 mg-160 mg Refill(s), oral powder Pharmacy: [facility], ion 152.4, cm, 02/10/22 14:18:00 CDT, Height, 68.3, kg, 02/10/22 14:18:00 CDT, Weight chlordiazeP Yes See Memori a OXIDE 25 mg 5-19 Instructio l oral 16:44: ns, Take 1 [place] capsule 00 cap 3 (Librium) times daily for 3 days, 1 cap twice daily for 3 days and 1 cap daily for 3 days. PLEASE DO NOT TAKE WITH ALCOHOL, # 18 cap, 0 Refill(s), Pharmacy: [facility], 152.4, cm, 02/10/22 14:18:00 CDT, Height, 68.3, kg, ... lisinopril Yes 20 mg = 1 Me moria 20 mg oral 5-19 tab, PO, l tablet 16:43: Daily, # [place] 00 90 tab, 1 Refill(s), Pharmacy: [facility], 152.4, cm, 02/10/22 14:18:00 CDT, Height, 68.3, kg, 02/10/22 14:18:00 CDT, Weight amLODIPine Yes 5 mg = 1 Mem oria 5 mg oral 5-19 tab, PO, l tablet 16:43: Daily, # Froilan 00 90 tab, 1 Refill(s), Pharmacy: [facility], 152.4, cm, 02/10/22 14:18:00 CDT, Height, 68.3, kg, 02/10/22 14:18:00 CDT, Weight amLODIPine No 10 mg, Memor ia 5-19 Route: PO, l 16:36: Drug form: Froilan 00 TAB, Daily, Dosing Weight 68.3, kg, Start date: 02/11/22 11:36:00 CDT, Duration: 30 day, Stop date: 03/13/22 9:00:00 CDT magnesium No Notes: Memori a sulfate 2 02-11 WASTE: F/P l gm in Water 16:33: - Sink; E H ermann 50 ml 00 - Municipal Trash Bin docusate No Notes: Memoria 5-19 (Same as: l 14:00: Colace) (Do Not Crush) senna No Notes: Memoria 5-19 (Same as: l 14:00: Senokot) lisinopril No Notes: Memor ia 5-19 (Same as: l 14:00: Prinivil, Zestril) amLODIPine No Notes: Memor ia 5-19 (Same as: l 14:00: Norvasc) docusate No 100 mg, Memori a 5-19 Route: PO, l 07:53: BID, Dosing Weight 68.3, kg, PRN as needed for constipati on, Start date: 02/11/22 2:53:00 CDT, Duration: 30 day, Stop date: 03/13/22 2:52:00 CDT trazodone No Notes: Memori a 5-19 (Same As: l 07:53: Desyrel) acetaminoph No 100.4 F, M emoria en 5-19 headache, l 07:53: Start date: 02/11/22 2:53:00 CDT, Duration: 30 day, Stop date: 03/13/22 2:52:00 CDT Sodium No 1,000 mL, Memori a Chloride 5-19 Rate: 100 l 0.9% IV 07:53: ml/hr, [place] 1,000 mL + 00 Infuse M.V.I.-12 over: 10.1 10 mL + hr, Route: folic acid IV, Dosing IV 1 mg + Weight thiamine IV 68.3 kg, 100 mg Total Volume: 1,011.2, Start date: 02/11/22 2:53:00 CDT, Duration: 3 day, Stop date: 02/14/22 2:52:00 CDT, BSA: 1.73 m2, 0 Robitussin No Notes: Memor ia 100 mg/5 mL 5-19 (Same as: l oral liquid 07:53: Robitussin ) Maalox No Notes: Memoria Advanced 5-19 (aluminum l Regular 07:53: hydroxide- Herm paras Strength 00 magnesium SUSP hyd-simeth icone 200-200-20 mg/5ml 30 ml ud PETERSON) DuoNeb No Notes: Memoria inhalation 5-19 (Same as: l solution 07:53: Duoneb) Ramo n hydrALAZINE No 160, Memor ia 5-19 Start l 07:53: date: [place]il[place] 02/11/22 2:53:00 CDT, Duration: 30 day, Stop date: 03/13/22 2:52:00 CDT ondansetron No 4 mg, Memor ia 5-19 Route: l 07:50: IVP, Q8H, Dosing Weight 68.3, kg, PRN Nausea & Vomiting, Priority: STAT, Start date: 02/11/22 2:50:00 CDT, Duration: 30 day, Stop date: 03/13/22 2:49:00 CDT Lactated No 1,000 mL, Tae cyndi Ringers IV 5-19 Rate: 100 l 1,000 mL 07:50: ml/hr, Infuse over: 10 hr, Route: IV, Dosing Weight 68.3 kg, Total Volume: 1,000, Priority: STAT, Start date: 02/11/22 2:50:00 CDT, Duration: 30 day, Stop date: 03/13/22 2:49:00 CDT, BSA: 1.73 m2 LORazepam No Notes: Memori a 5-19 (Same as: l 07:50: Ativan) chlordiazeP No 25 mg, 1 Me moria OXIDE 25 mg 5-19 cap, l oral 07:50: Route: PO, [place] capsule 00 Drug form: (Librium) CAP, Q8H, Dosing Weight 68.3, kg, Alcohol Withdrawal , Priority: STAT, Start date: 02/11/22 2:50:00 CDT, Duration: 30 day, Stop date: 03/12/22 19:00:00 CDT, 0 Zofran No Notes: Memoria 5-19 (Same as: l 05:32: Zofran) MEDICATION WASTE Product Size: 4 mg Product Wasted: ___ mg Zofran No Notes: Memoria 5-19 (Same as: l 02:21: Zofran) MEDICATION WASTE Product Size: 4 mg Product Wasted: ___ mg Ativan No Notes: Memoria 5-19 (Same as: l 02:19: Ativan) Saline No Notes: Memoria Flush 0.9% 5-19 Same as: l 02:00: BD Posiflush Sterile Zofran No Notes: Memoria 5-19 (Same as: l 01:31: Zofran) ketOROLAC No 4 days. Tae cyndi 5-18 l 21:07: ketOROLAC No 4 days. Tae cyndi 5-18 l 21:00: Benadryl No Notes: Memoria 5-18 (Same as: l 20:32: Benadryl) Isolyte S No Notes: Memori a PH-7.4 5-18 (Same as: l (Bolus) IV 20:31: Isolyte S He rmann 00 PH7.4, Normosol-R PH 7.4, Plasma-Lyt e A ) Isolyte S No Notes: Memori a PH 7.4 5-18 (Same as: l 1,000 mL 20:31: Isolyte S Herm paras PH7.4, Normosol-R PH 7.4, Plasma-Lyt e A ) potassium No Notes: Memori a chloride 5-18 (Same as: l 20:28: KCL) 10 mEq/100ml product recommende d for peripheral line administra tion. Infuse no faster than 10 mEq/hr if given peripheral ly. sodium No Notes: Memoria phosphate + 5-18 Infuse l Sodium 20:28: over 4 [place] Chloride 00 hour. Do 0.9% IV 250 not infuse mL phosphorou s concurrent ly in the same line as TPN or IVF that contains calcium. For double lumen central lines, phosphorou s may be infused in a separate lumen from TPN. potassium No Notes: Memori a phosphate + 5-18 (Same as: l Sodium 20:28: K [place] Chloride 00 Phosphate. 0.9% IV 250 ) Do not mL infuse phosphorou s concurrent ly in the same line as TPN or IVF that contains calcium. For double lumen central lines, phosphorou s may be infused in a separate lumen from TPN. 1 mMol phoshate has 1.47 mEq potassium Infuse over 4 hours potassium No Notes: Memori a phosphate-s -18 (Same as: l odium 20:28: Phos-NaK) [place] phosphate 00 Each 1.5 250 mg-280 gm pkt has mg-160 mg 250mg oral powder phosphorou for s. Mix reconstitut w/2.5oz ion water and stir. magnesium No Notes: Memori a sulfate 02-10 WASTE: F/P l 20:28: - Sink; E - Municipal Trash Bin magnesium No Notes: Memori a oxide -18 (Same as: l 20:28: Mag-Ox [place] 00 400) Magnesium oxide [id number]=[id number] g elemental magnesium Dose=____m g magnesium oxide (___mg elemental magnesium) calcium No Notes: Memoria gluconate -18 Contains: l 20:28: calcium [place]il[place] 00 gluconate 20mg/mL NaCl 0.67% 50mL WASTE: F/P - Sink; E - Municipal Trash Bin calcium No Notes: Memoria carbonate -18 (Same As: l 500 mg (200 20:28: Tums) Ally nn mg 00 Calcium elemental Carbonate calcium) 500 mg = oral tablet 200 mg elemental calcium Dose = mg calcium carbonate ( mg elemental calcium) Dextrose No 12.5 gm, Memor ia 50% Syringe -18 25 mL, l (D50W) 20:28: Route: IVP, Drug Form: INJ, Dosing Weight 68.3, kg, PRN, PRN Blood Glucose Results, Start date: 02/10/22 15:28:00 CDT, Duration: 30 day, Stop date: 03/12/22 15:27:00 CDT, 0 glucagon No 1 mg, Memoria 5-18 Route: IM, l 20:28: Drug form: PDR/INJ, PRN, Dosing Weight 68.3, kg, PRN Blood Glucose Results, Start date: 02/10/22 15:28:00 CDT, Duration: 30 day, Stop date: 03/12/22 15:27:00 CDT, 0 insulin No Notes: Memoria lispro 5-18 (Same as: l 20:28: Humalog) Roll in palms of hands gently; Do not shake vigorously . WASTE: F/P - Black; E - Municipal Trash Bin Stable for 28 days at room temperatur e. Expires in days from ____Date acetaminoph No Notes: Do M emoria en 5-18 not exceed l 20:27: 4 gm/day. (Same as: Tylenol) Saline No Notes: Memoria Flush 0.9% 5-18 Same as: l 20:27: BD Posiflush Sterile labetalol No Notes: Memori a 5-18 (Same as: l 20:27: Normodyne, Trandate) Push over 2 minutes Give bolus over 2-3 minutes. hydrALAZINE No Notes: Tae cyndi 5-18 (Same as: l 20:27: Apresoline ) Push over 5 minutes Ativan No Notes: Memoria 5-18 (Same as: l 20:18: Ativan) Linzess 290 Yes 290 Memori a mcg oral 5-18 microgram l capsule 19:40: = 1 cap, Ramo n 00 PO, Daily, 30 minutes prior to the first meal of the day, # 30 cap, 0 Refill(s) lisinopril No 10 mg = 1 Me moria 10 mg oral 5-18 tab, PO, l tablet 19:38: Daily, 0 Froilan 00 Refill(s) Zofran No Notes: Memoria 5-18 (Same as: l 18:41: Zofran) [place] 00 MEDICATION WASTE Product Size: 4 mg Product Wasted: ___ mg labetalol No Notes: Memori a 5-18 (Same as: l 17:13: Normodyne, [place]il[place] 00 Trandate) Push over 2 minutes Give bolus over 2-3 minutes. enalaprilat No Notes: Tae cyndi 5-18 (Same as: l 16:47: Vasotec-IV Froilan 00 ) thiamine + No Notes: Memor ia Sodium 5-18 (Same As: l Chloride 16:35: Vitamin Ramo n 0.9% IV 50 00 B1) mL Omnipaque No Notes: Memori a 350 5-18 (Same l injectable 15:55: as:Omnipaq H ermann solution 00 ue 350) WASTE: F/P - Black; E - Municipal Trash Bin Saline No Notes: Memoria Flush 0.9% 5-18 Same as: l 15:45: BD [place] 00 Posiflush Sterile Sodium No 500 mL, Memoria Chloride 5-18 500 ml/hr, l 0.9% 15:45: Infuse [place] (Bolus) IV 00 Over: 1 hr, Route: IV, 500, Drug form: INJ, ONCE, Priority: STAT, kg, Start date: 02/10/22 10:45:00 CDT, Stop date: 02/10/22 10:45:00 CDT, 0 Linzess Yes DANIEL 1 capsule Me moria 4-08 BALTA l 04:12: Froilan 49 Chlordiazep Yes DANIEL 2 po tid Memoria oxide HCl 4-06 BALTA for 3d l 00:00: then 1 po [place]il[place] 00 tid for 3d then 1 po bid for 3d then 1 po qd for 3d Antabuse Yes DANIEL 1 tablet Me moria 2-17 BALTA l 00:00: Chlordiazep 0 Yes DANIEL 2 po tid Memoria oxide HCl 2-17 BALTA for 3d l 00:00: then 1 po tid for 3 d then 1 po bid for 3d then 1 po qd for 3 days PARoxetine 0 Yes DANIEL 1 tablet Memoria HCl ER 2-17 BALTA in the l 00:00: morning Ciprofloxac 0 Yes DANIEL 1 tablet Memoria in HCl 1-29 BALTA l 00:00: BusPIRone 0 Yes DANIEL 2 tablets Memoria HCl 1-26 BALTA l 00:00: BusPIRone 2020-09 Yes DANIEL 1 tablet M emoria HCl 2-01 BALTA l 00:00: Progesteron 2020-09 Yes DANIEL 1 capsule Memoria e 2-01 BALTA l Micronized 00:00: Levofloxaci 2020-09 Yes DANIEL 1 tablet Memoria n 0-06 BALTA l 00:00: [place] 0 Yes DANIEL 1 tablet Tae cyndi Thyroid 9-30 BALTA on an l 00:00: empty stomach lisinopriL 0 Yes 10mg QD Take 10 mg M ethodi (PRINIVIL) 8-[address] 10 mg 13:53: daily. Hospita tablet 13 l Effexor XR 0 Yes DANIEL 1 capsule Memoria 8-18 BALTA with food l 00:00: progesteron 0 Yes 100mg QD Take 100 M ethodi e 8-[address] (PROMETRIUM 00:00: mouth Hospi ta ) 200 MG 00 daily. l capsule Prometrium 0 Yes DANIEL 1 capsule Memoria 8-02 BALTA l 00:00: Linzess 290 2020-0 Yes 290ug QD Take 290 M ethodi mcg capsule 6-[address] 00:00: mouth Hospita 00 daily. l traZODone Yes 50mg QD Take 50 mg Me thodi (DESYREL) 6-[address] 50 MG 00:00: nightly. Hospita tablet 00 l Trazodone Yes DANIEL 1-3 Memor ia HCl 1-05 BALTA tablets l 00:00: Progesteron Yes CASEY 1 capsule Memoria e 7-22 JUDGE at bedtime l Micronized 00:00: Prometrium Yes DANIEL 1 capsule Memoria 5-14 BALTA l 00:00: Prometrium Yes DANIEL 1 capsule Memoria 4-30 BALTA at bedtime l 00:00: every cycle Progesteron 2018-09 Yes DANIEL 1 capsule Memoria e 2-04 BALTA at bedtime l Micronized 05:10: Froilan 49 Azithromyci 2018-09 Yes TIYASHI as Mem oria n 0-14 JOSE MARIA directed l 00:00: Medrol 2018-09 Yes TIYASHI as Memoria (Edd) 0-09 JOSE MARIA directed l 00:00: Prometrium Yes TIYASHI 1 capsule Memoria 8-28 JOSE MARIA at bedtime l 04:10: Once a day Froilan 59 Oral 30 Prometrium Yes DANIEL TAKE ONE Memoria 6-21 BALTA CAPSULE BY l 04:10: MOUTH AT [place] 18 BEDTIME Ambien Yes CASEY TAKE ONE Tae cyndi 2-01 JUDGE TABLET BY l 05:11: MOUTH AT 27 BEDTIME Ambien CR Yes TIYASHI 1 tablet M emoria 1-31 JOSE MARIA at bedtime l 00:00: as needed Progesteron 2017-09 Yes CASEY not Mem oria e 1-28 JUDGE defined l Micronized 05:36: 31 Lisinopril 2017-09 Yes CASEY 1 tablet Memoria 1-28 JUDGE l 05:36: Zolpidem 2017-09 Yes DANIEL 1 tablet Me moria Tartrate 1-17 BALTA at bedtime l 05:51: as needed Augmentin 2018-1 Yes CASEY not Memor ia 1-14 JUDGE defined l 05:30: [place] Lisinopril 2018-0 Yes DANIEL 1 tablet Memoria 9-11 BALTA l 00:00: Lisinopril 2018-0 Yes DANIEL 1 tablet Memoria 9-11 BALTA l 00:00: Progesteron 2018-0 Yes DANIEL 1 capsule Memoria e 2-06 BALTA at bedtime l Micronized 00:00: Lisinopril 2017-0 Yes DANIEL 1 tablet Memoria 4-17 BALTA l 00:00: Bromfed DM 2016-0 Yes CASEY 10 ml as Memoria 1-06 JUDGE needed l 00:00: Amoxicillin 2017-0 Yes CASEY 1 tablet Memoria -Pot 1-03 JUDGE l Clavulanate 00:00: Ramo n Zolpidem 2015-0 Yes DANIEL 1 tablet Me moria Tartrate 8-27 BALTA at bedtime l 06:21: as needed Fro[place] 58 Pantoprazol 2014-0 Yes DANIEL 1 tablet Memoria e Sodium 4-14 BALTA l 00:00: Pantoprazol 2015-0 Yes DANIEL 1 tablet Memoria e Sodium 4-14 BALTA l 00:00: Zolpidem 2014-1 Yes DANIEL 1 tablet Me moria Tartrate 2-06 BALTA at bedtime l 06:17: as needed Froilan 37 Prometrium 2013-1 Yes DANIEL 1 capsule Memoria 1-19 BALTA at bedtime l 00:00: Hydrochloro 2013-1 Yes DANIEL 1 tablet Memoria thiazide 1-19 BALTA l 00:00: Vital Signs Vital Name Observation Time Observation Value Comments Source Heart Rate 2022-02-11 17:01:46 Poornima Mcgovern Respitory Rate 2022-02-11 17:01:46 Memtom al [place] Temperature Oral (F) 2022-02-11 17:01:[facility] 2022-02-11 17:01:26 Tae rial [place] Diastolic (mm Hg) 2022-02-11 17:01:26 Mem orial [place] Heart Rate 2022-02-11 17:01:26 [facility] [place] Heart Rate 2022-02-11 12:33:06 [facility] [place] Respitory Rate 2022-02-11 12:33:06 Memori al [place] Systolic (mm Hg) 2022-02-11 12:33:01 Tae rial [place] Diastolic (mm Hg) 2022-02-11 12:33:01 Mem orial [place] Temperature Oral (F) 2022-02-11 12:32:50 97.7 F [facility] [place] Respitory Rate 2022-02-11 08:44:37 Memori al [place] Temperature Oral (F) 2022-02-11 08:44:27 97.8 F [facility] [place] Systolic (mm Hg) 2022-02-11 08:44:16 Tae rial [place] Diastolic (mm Hg) 2022-02-11 08:44:16 Mem orial [place] Height 2022-02-10 19:18:00 152.4 cm [facility] [place] Weight 2022-02-10 19:18:00 [facility] [place] BMI Calculated 2022-02-10 19:18:00 Memori al [place] Diastolic (mm Hg) 2021-12-30 21:00:00 Mem orial [place] Systolic (mm Hg) 2021-12-30 21:00:00 Tae rial [place] Temperature Oral (F) 2021-12-30 21:00:00 97.6 F [facility] [place] Weight 2021-12-30 21:00:00 [facility] [place] Height 2021-12-30 21:00:00 [facility] [place] Diastolic (mm Hg) 2021-11-25 20:00:00 Mem orial [place] Systolic (mm Hg) 2021-11-25 20:00:00 Tae rial [place] Temperature Oral (F) 2021-11-25 20:00:00 97.6 F [facility] [place] Weight 2021-11-25 20:00:00 [facility] [place] Height 2021-11-25 20:00:00 [facility] [place] Diastolic (mm Hg) 2021-11-12 22:30:00 Mem orial [place] Systolic (mm Hg) 2021-11-12 22:30:00 Tae rial [place] Temperature Oral (F) 2021-11-12 22:30:00 97.8 F [facility] [place] Weight 2021-11-12 22:30:00 [facility] [place] Height 2021-11-12 22:30:00 [facility] [place] Diastolic (mm Hg) 2021-08-26 20:15:00 Mem orial [place] Systolic (mm Hg) 2021-08-26 20:15:00 Tae rial [place] Temperature Oral (F) 2021-08-26 20:15:00 98.6 F [facility] [place] Weight 2021-08-26 20:15:00 [facility] [place] Height 2021-08-26 20:15:00 [facility] [place] Diastolic (mm Hg) 2021-06-25 16:00:00 Mem orial [place] Systolic (mm Hg) 2021-06-25 16:00:00 Tae rial [place] Temperature Oral (F) 2021-06-25 16:00:00 98.8 F [facility] [place] Weight 2021-06-25 16:00:00 [facility] [place] Height 2021-06-25 16:00:00 [facility] [place] Weight 2021-06-11 17:30:00 [facility] [place] Height 2021-06-11 17:30:00 [facility] [place] Heart Rate 2021-06-11 17:30:00 [facility] [place] Diastolic (mm Hg) 2021-04-27 20:30:00 Mem orial [place] Systolic (mm Hg) 2021-04-27 20:30:00 Tae rial [place] Temperature Oral (F) 2021-04-27 20:30:00 97.3 F [facility] [place] Weight 2021-04-27 20:30:00 [facility] [place] Height 2021-04-27 20:30:00 [facility] [place] Diastolic (mm Hg) 2021-04-20 20:00:00 Mem orial [place] Systolic (mm Hg) 2021-04-20 20:00:00 Tae rial [place] Temperature Oral (F) 2021-04-20 20:00:00 96.8 F [facility] [place] Weight 2021-04-20 20:00:00 [facility] [place] Height 2021-04-20 20:00:00 [facility] [place] Diastolic (mm Hg) 2021-02-03 17:30:00 Mem orial [place] Systolic (mm Hg) 2021-02-03 17:30:00 Tae rial [place] Temperature Oral (F) 2021-02-03 17:30:00 98.3 F [facility] [place] Weight 2021-02-03 17:30:00 [facility] [place] Height 2021-02-03 17:30:00 [facility] [place] Diastolic (mm Hg) 2020-06-17 15:00:00 Mem orial [place] Systolic (mm Hg) 2020-06-17 15:00:00 [facility] Temperature Oral (F) 2020-06-17 15:00:00 97.7 F [facility] Weight 2020-06-17 15:00:00 [facility] Height 2020-06-17 15:00:00 [facility] Height 2020-04-21 19:15:00 [facility] Diastolic (mm Hg) 2020-04-21 19:15:00 [facility] Systolic (mm Hg) 2020-04-21 19:15:00 [facility] Weight 2020-04-21 19:15:00 [facility] Diastolic (mm Hg) 2020-01-24 16:00:00 [facility] Systolic (mm Hg) 2020-01-24 16:00:00 [facility] Temperature Oral (F) 2020-01-24 16:00:00 98.5 F [facility] Weight 2020-01-24 16:00:00 [facility] Height 2020-01-24 16:00:00 [facility] Diastolic (mm Hg) 2019-10-19 16:15:00 [facility] Systolic (mm Hg) 2019-10-19 16:15:00 [facility] Temperature Oral (F) 2019-10-19 16:15:00 98.4 F [facility] Weight 2019-10-19 16:15:00 [facility] Height 2019-10-19 16:15:00 [facility] Diastolic (mm Hg) 2019-08-28 17:00:00 [facility] Systolic (mm Hg) 2019-08-28 17:00:00 [facility] Temperature Oral (F) 2019-08-28 17:00:00 98.0 F [facility] Weight 2019-08-28 17:00:00 [facility] Height 2019-08-28 17:00:00 [facility] Diastolic (mm Hg) 2019-07-04 19:00:00 [facility] Systolic (mm Hg) 2019-07-04 19:00:00 [facility] Temperature Oral (F) 2019-07-04 19:00:00 98.1 F [facility] Weight 2019-07-04 19:00:00 [facility] Height 2019-07-04 19:00:00 [facility] Diastolic (mm Hg) 2019-05-22 15:15:00 [facility] Systolic (mm Hg) 2019-05-22 15:15:00 [facility] Temperature Oral (F) 2019-05-22 15:15:00 97.4 F [facility] Weight 2019-05-22 15:15:00 [facility] Height 2019-05-22 15:15:00 [facility] Diastolic (mm Hg) 2019-04-25 19:15:00 [facility] Systolic (mm Hg) 2019-04-25 19:15:00 [facility] Temperature Oral (F) 2019-04-25 19:15:00 97.9 F [facility] Weight 2019-04-25 19:15:00 [facility] Height 2019-04-25 19:15:00 [facility] Diastolic (mm Hg) 2018-11-02 14:30:00 [facility] Systolic (mm Hg) 2018-11-02 14:30:00 [facility] Temperature Oral (F) 2018-11-02 14:30:00 98.6 F [facility] Weight 2018-11-02 14:30:00 [facility] Height 2018-11-02 14:30:00 [facility] Diastolic (mm Hg) 2018-10-26 21:15:00 [facility] Systolic (mm Hg) 2018-10-26 21:15:00 [facility] Temperature Oral (F) 2018-10-26 21:15:00 98.4 F [facility] Weight 2018-10-26 21:15:00 [facility] Height 2018-10-26 21:15:00 [facility] Diastolic (mm Hg) 2018-08-15 16:15:00 [facility] Systolic (mm Hg) 2018-08-15 16:15:00 [facility] Temperature Oral (F) 2018-08-15 16:15:00 98.4 F [facility] Weight 2018-08-15 16:15:00 [facility] Height 2018-08-15 16:15:00 [facility] Diastolic (mm Hg) 2018-06-06 20:00:00 [facility] Systolic (mm Hg) 2018-06-06 20:00:00 Ate [facility] Temperature Oral (F) 2018-06-06 20:00:00 97.2 F [facility] Weight 2018-06-06 20:00:00 [facility] Height 2018-06-06 20:00:00 [facility] Diastolic (mm Hg) 2018-03-23 22:30:00 [facility] Systolic (mm Hg) 2018-03-23 22:30:00 [facility] Temperature Oral (F) 2018-03-23 22:30:00 98.8 F [facility] Weight 2018-03-23 22:30:00 [facility] Height 2018-03-23 22:30:00 [facility] Diastolic (mm Hg) 2017-11-01 16:15:00 [facility] Systolic (mm Hg) 2017-11-01 16:15:00 [facility] Temperature Oral (F) 2017-11-01 16:15:00 98.4 F [facility] Weight 2017-11-01 16:15:00 [facility] Height 2017-11-01 16:15:00 [facility] Diastolic (mm Hg) 2017-03-08 21:30:00 [facility] Systolic (mm Hg) 2017-03-08 21:30:00 [facility] Temperature Oral (F) 2017-03-08 21:30:00 99.2 F [facility] Weight 2017-03-08 21:30:00 [facility] Height 2017-03-08 21:30:00 [facility] Diastolic (mm Hg) 2017-01-10 16:00:00 [facility] Systolic (mm Hg) 2017-01-10 16:00:00 [facility] Temperature Oral (F) 2017-01-10 16:00:00 97.9 F [facility] Weight 2017-01-10 16:00:00 [facility] Height 2017-01-10 16:00:00 [facility] Diastolic (mm Hg) 2016-11-30 20:15:00 [facility] Systolic (mm Hg) 2016-11-30 20:15:00 [facility] Temperature Oral (F) 2016-11-30 20:15:00 99.0 F [facility] Weight 2016-11-30 20:15:00 [facility] Height 2016-11-30 20:15:00 [facility] Diastolic (mm Hg) 2016-09-28 15:15:00 [facility] Systolic (mm Hg) 2016-09-28 15:15:00 [facility] Temperature Oral (F) 2016-09-28 15:15:00 98.2 F [facility] Weight 2016-09-28 15:15:00 [facility] Height 2016-09-28 15:15:00 [facility] Diastolic (mm Hg) 2016-09-24 21:00:00 [facility] Systolic (mm Hg) 2016-09-24 21:00:00 [facility] Temperature Oral (F) 2016-09-24 21:00:00 98.1 F [facility] Weight 2016-09-24 21:00:00 [facility] Height 2016-09-24 21:00:00 [facility] Diastolic (mm Hg) 2015-01-07 19:15:00 [facility] Systolic (mm Hg) 2015-01-07 19:15:00 [facility] Temperature Oral (F) 2015-01-07 19:15:00 98.5 F [facility] Weight 2015-01-07 19:15:00 [facility] Height 2015-01-07 19:15:00 [facility] Diastolic (mm Hg) 2014-08-14 22:00:00 [facility] Systolic (mm Hg) 2014-08-14 22:00:00 [facility] Temperature Oral (F) 2014-08-14 22:00:00 98.7 F [facility] Weight 2014-08-14 22:00:00 [facility] Height 2014-08-14 22:00:00 [facility] Procedures This patient has no known procedures. Plan of Care Planned Activity Planned Date Details Comments Source Future Scheduled 2022-05-25 HEPATITIS B VACCINES [facility] Test 19:14:35 (1 of 3 - 3-dose series) [code = HEPATITIS B VACCINES (1 of 3 - 3-dose series)] Future Scheduled 2022-05-25 COVID-19 VACCINE (#1) [facility] Test 19:14:35 [code = COVID-19 VACCINE (#1)] Future Scheduled 2022-05-25 Hepatitis C screening [facility] Test 19:14:35 (procedure) [code = 115894698] Future Scheduled 2022-05-25 Screening for [facility] Test 19:14:35 malignant neoplasm of cervix (procedure) [code = 233799377] Future Scheduled 2022-05-25 COLONOSCOPY SCREENING [facility] Test 19:14:35 [code = COLONOSCOPY SCREENING] Future Scheduled 2022-05-25 SHINGLES VACCINES (1 [facility] Test 19:14:35 of 2) [code = SHINGLES VACCINES (1 of 2)] Future Scheduled 2022-05-25 BREAST CANCER [facility] Test 19:14:35 SCREENING [code = BREAST CANCER SCREENING] Future Scheduled 2022-05-25 INFLUENZA VACCINE [facility] Test 19:14:35 [code = INFLUENZA VACCINE] Encounters Start End Encounter Admission Attending Care Care Encounter Source Date/Time Date/Time Type Type Clinicians Facility Department ID 2022-04-02 2022-04-02 Outpatient Wilfredo Olsonmanuel Reyna [id number] [facility]inic 14:35:00 14:35:00 [facility] 2022-02-10 2022-02-11 Inpatient [facility] [id number] [facility] 15:43:57 19:00:00 aime Mcgovern 00 l [facility] 2022-02-10 2022-02-11 Outpatient Ria [facility] [id number] 10:43:57 14:00:00 Jaret 00 Arturo 2022-02-10 2022-02-11 Outpatient Ria [facility] [id number] 10:43:57 14:00:00 Jaret 00 Arturo 2022-01-13 2022-01-13 Outpatient Wilfredo Wilfredo [place] [id number] [facility]Clinic 10:13:00 10:13:00 [facility] 2021-12-30 2021-12-30 [facility] [id number] [facility] 16:00:00 16:00:00 [facility] 2021-12-30 2021-12-30 [facility] [id number] [facility] 11:11:00 11:11:00 [facility] 2021-12-30 2021-12-30 [facility] [id number] [facility] 09:43:00 09:43:00 [facility] 2021-11-25 2021-11-25 [facility] [id number] [facility] 14:00:00 14:00:00 [facility] 2021-11-12 2021-11-12 [facility] [id number] [facility] 16:30:00 16:30:00 [facility] 2021-10-24 2021-10-24 [facility] [id number] [facility] 10:35:00 10:35:00 [facility] 2021-09-08 2021-09-08 [facility] [id number] [facility] 14:30:00 14:30:00 [facility] 2021-08-26 2021-08-26 [facility] [id number] [facility] 14:15:00 14:15:00 [facility] 2021-08-18 2021-08-18 [facility] [id number] [facility] 16:01:00 16:01:00 [facility] 2021-07-01 2021-07-01 [facility] [id number] [facility] 09:18:00 09:18:00 [facility] 2021-07-01 2021-07-01 [facility] [place] [id number] [facility] 09:16:00 09:16:00 [facility] 2021-06-25 2021-06-25 [facility] [id number] [facility] 10:00:00 10:00:00 [facility] 2021-06-11 2021-06-11 [facility] [id number] [facility] 11:30:00 11:30:00 [facility] 2021-06-10 2021-06-10 [facility] [place] [id number] [facility] 16:59:00 16:59:00 [facility] 2021-06-10 2021-06-10 [facility] [id number] [facility] 14:52:00 14:52:00 [facility] 2021-06-02 2021-06-02 [facility] [id number] [facility] 11:59:00 11:59:00 [facility] 2021-05-14 2021-05-15 Outpatient [place] [id number] [place] [address] 00:00:00 00:00:00 GIUSEPPE [facility] 2021-04-27 2021-04-27 [facility] [id number] [facility] 14:30:00 14:30:00 [facility] 2021-04-20 2021-04-20 [facility] [id number] [facility] 14:00:00 14:00:00 [facility] 2021-04-15 2021-04-15 [facility] [id number] [facility] 19:47:00 19:47:00 [facility] 2021-02-03 2021-02-03 [facility] [id number] [facility] 11:30:00 11:30:00 [facility] 2021-01-20 2021-01-20 [facility] [id number] [facility] 16:46:00 16:46:00 [facility] 2021-01-16 2021-01-16 [facility] [id number] [facility] 11:15:00 11:15:00 [facility] 2020-09-22 2020-09-22 Outpatient Wilfredo Wilfredomanuel Reyna [id number] eClinic 09:27:00 09:27:00 [facility] 2020-06-17 2020-06-17 Outpatient Wilfredo Wilfredomanuel Reyna [id number] [facility]Clinic 10:00:00 10:00:00 [facility] 2020-06-03 2020-06-03 Outpatient Wilfredo Wilfredo [place] [id number] [facility] 11:30:00 11:30:00 [facility] 2020-05-29 2020-05-29 Outpatient Wilfredo Wilfredo [place] [id number] [facility] 14:24:00 14:24:00 [facility] 2020-05-19 2020-05-19 Outpatient Wilfredo Wilfredomanuel Reyna [id number] eClinic 16:01:00 16:01:00 [facility] 2020-04-21 2020-04-21 Outpatient Wilfredo Wilfredomanuel Reyna [id number] eClinic 14:15:00 14:15:00 [facility] 2020-04-17 2020-04-17 Outpatient Wilfredo Wilfredo [place] [id number] [facility] 14:20:00 14:20:00 [facility] 2020-03-20 2020-03-20 [facility] [id number] [facility] 09:10:00 09:10:00 [facility] 2020-02-11 2020-02-11 Outpatient REGGIE Banerjee [id number] [facility] 08:33:00 08:33:[address] [facility] 2020-02-07 2020-02-07 Outpatient Wilfredo Wilfredomanuel Reyna [id number] eClinic 10:10:00 10:10:00 [facility] 2020-01-24 2020-01-24 Outpatient Wilfredo Wilfredo [place] [id number] [facility] 11:00:00 11:00:00 [facility] 2019-10-23 2019-10-23 [facility] [id number] [facility] 10:55:00 10:55:00 [facility] 2019-10-19 2019-10-19 Outpatient Wilfredo Wilfredomanuel Reyna [id number] [facility]inic 10:30:00 10:30:00 [facility] 2019-10-19 2019-10-19 Outpatient Wilfredo Wilfredomanuel Reyna [id number] [facility]inic 10:15:00 10:15:00 [facility] 2019-08-28 2019-08-28 [facility] [id number] [facility] 11:00:00 11:00:00 [facility] 2019-07-24 2019-07-24 [facility] [id number] [facility] 08:47:00 08:47:00 [facility] 2019-07-09 2019-07-09 [facility] [id number] [facility] 10:07:00 10:07:00 [facility] 2019-07-04 2019-07-04 [facility] [id number] [facility] 14:00:00 14:00:00 [facility] 2019-05-22 2019-05-22 [facility] [id number] [facility] 10:15:00 10:15:00 [facility] 2019-04-25 2019-04-25 [facility] [id number] [facility] 14:15:00 14:15:00 [facility] 2019-03-15 2019-03-15 Outpatient [facility] [id number] eClinic 10:00:00 10:00:00 [facility] 2019-01-25 2019-01-25 Outpatient Daniel Daniel [id number] eClinic 10:27:00 10:27:00 Balta Schulte MD 2019-01-18 2019-01-18 Outpatient Daniel Daniel [id number] eClinic 11:15:00 11:15:00 Balta Schulte MD 2018-11-02 2018-11-02 Outpatient Daniel Daniel [id number] e[facility]inic 08:30:00 08:30:00 Balta Schulte MD 2018-10-26 2018-10-26 Outpatient Daniel Daniel [id number] e[facility]inic 15:15:00 15:15:00 Balta Schulte MD 2018-08-15 2018-08-15 Outpatient Daniel Daniel [id number] eClinic 10:15:00 10:15:00 Balta Schulte MD 2018-08-10 2018-08-10 Outpatient Daniel Daniel [id number] e[facility]inic 08:41:00 08:41:00 Balta Schulte MD 2018-06-06 2018-06-06 Outpatient Daniel Daniel [id number] [facility]inic 14:00:00 14:00:00 Balta Schulte MD 2018-06-02 2018-06-02 Outpatient Daniel Daniel [id number] e[facility]inic 16:23:00 16:23:00 Balta Schulte MD 2018-03-23 2018-03-23 Outpatient Daniel Daniel [id number] e[facility]inic 16:30:00 16:30:00 Balta Schulte MD 2017-11-01 2017-11-01 Outpatient Daniel Daniel [id number] e[facility]inic 10:15:00 10:15:00 Balta Schulte MD 2017-04-04 2017-04-04 Outpatient Daniel Daniel [id number] e[facility]inic 17:00:00 17:00:00 Balta Schulte MD 2017-03-08 2017-03-08 Outpatient Daniel Daniel [id number] eClinic 15:30:00 15:30:00 Balta Schulte MD 2017-01-10 2017-01-10 Outpatient Daniel Daniel [id number] eClinic 10:00:00 10:00:00 Balta Schulte MD 2016-12-08 2016-12-08 Outpatient Daniel Daniel [id number] e[facility]inic 12:47:00 12:47:00 Balta Schulte MD 2016-12-01 2016-12-01 Outpatient Daniel Daniel [id number] eClinic 08:15:00 08:15:00 Balta Schulte MD 2016-11-30 2016-11-30 Outpatient Daniel Daniel [id number] eClinic 14:15:00 14:15:00 Balta Schulte MD 2016-10-11 2016-10-11 Outpatient Daniel Daniel [id number] e[facility]inic 10:31:00 10:31:00 Balta Schulte MD 2016-10-01 2016-10-01 Outpatient Daniel Daniel [id number] e[facility]inic 09:54:00 09:54:00 Balta Schulte MD 2016-09-28 2016-09-28 Outpatient Daniel Daniel [id number] eClinic 09:15:00 09:15:00 Balta Schulte MD 2016-09-24 2016-09-24 Outpatient Daniel Daniel [id number] e[facility]inic 15:00:00 15:00:00 Balta Schulte MD 2016-09-09 2016-09-09 Outpatient Daniel Daniel [id number] [facility]inic 10:07:00 10:07:00 Balta Schulte MD 2016-05-27 2016-05-27 pellet nullFlavo Daniel [id number] [facility] 14:11:00 14:11:00 inquiry aime Gifford [id number] cary ZARAGOZA, SHAUN [id number] Al[facility] nn [id number] 2016-05-27 2016-05-27 Outpatient Daniel Daniel [id number] [facility]inic 09:11:00 09:11:00 Balta Gifford al Works MD, SHAUN ZARAGOZA, [place] 2016-04-13 2016-04-13 Outpatient Daniel Daniel [id number] eClinic 11:15:00 11:15:00 Balta Schulte MD 2016-04-02 2016-04-02 Test nullFlavo Daniel [id number] -1 [facility] 21:03:00 21:03:00 results aime Gifford [id number] cary ZARAGOZA, SHAUN [id number] Al[facility] nn [id number] 2016-04-02 2016-04-02 Test nullFlavo Daniel [id number] -e [facility] 21:03:00 21:03:00 results aime Gifford [id number] cary ZARAGOZA, [place] [id number] Ally nn [id number] 2016-04-02 2016-04-02 Outpatient Dnaiel Daniel [id number] eClinic 16:03:00 16:03:00 Balta Gifford al Works MD, SHAUN ZARAGOZA, [place] 2016-03-31 2016-03-31 labs nullFlavo Daniel [id number] -c [facility] 20:41:00 20:41:00 aime Gifford [id number] cary ZARAGOZA, [place] [id number] [facility] nn [id number] 2016-03-31 2016-03-31 labs nullFlavo Daniel [id number] -[id number] [facility] 20:41:00 20:41:00 aime Gifford [id number] cary ZARAGOZA, SHAUN [id number] Ally nn [id number] 2016-03-31 2016-03-31 labs nullFlavo Daniel [id number] -c [facility] 20:41:00 20:41:00 aime Gifford [id number]-[id number]-a cary ZARAGOZA, [place] [id number] [facility] nn [id number] 2016-03-31 2016-03-31 Outpatient Daniel Daniel [id number] eClinic 15:41:00 15:41:00 Balta Gifford al Works MD, SHAUN ZARAGOZA, [place] 2015-12-02 2015-12-02 Pellets nullFlavo Daniel [id number] -4 [facility] 16:15:00 16:15:00 aime Gifford [id number] cary ZARAGOZA, SHUAN [id number] [facility] nn [id number] 2015-12-02 2015-12-02 Pellets nullFlavo Daniel [id number] -a [facility] 15:15:00 15:15:00 aime Gifford bdf-[id number] cary ZARAGOZA, SHAUN [id number] [facility] nn [id number] 2015-12-02 2015-12-02 Pellets nullFlavo Daniel [id number] -3 [facility] 15:15:00 15:15:00 aime Gifford [id number] cary ZARAGOZA, [place] [id number] [facility] nn [id number] 2015-12-02 2015-12-02 Pellets nullFlavo Daniel [id number] -a [facility] 15:15:00 15:15:00 aime Gifford [id number]-[id number] cary ZARAGOZA, SHAUN [id number] [facility] [id number] 2015-12-02 2015-12-02 Outpatient Daniel Daniel [id number] eClinic 10:15:00 10:15:00 Balta Gifford al Works MD, SHAUN ZARAGOZA, [place] 2015-07-04 2015-07-04 PELLETS nullFlavo Daniel [id number] -5 [facility] 21:00:00 21:00:00 aime Gifford [id number]-[id number] cary ZARAGOZA, SHAUN [id number] [facility] nn [id number] 2015-07-04 2015-07-04 PELLETS nullFlavo Daniel [id number] -[id number] [facility] 20:00:00 20:00:00 aime Gifford [id number]-flora townsend MD, [place] [id number] [facility] nn [id number] 2015-07-04 2015-07-04 PELLETS nullFlavo Daniel [id number] -a [facility] 20:00:00 20:00:00 aime Gifford [id number] l MD, PA [id number] [facility] nn [id number] 2015-07-04 2015-07-04 PELLETS nullFlavo Daniel [id number] -0 [facility] 20:00:00 20:00:00 aime Gifford [id number] cary ZARAGOZA, [place] [id number] [facility] nn [id number] 2015-07-04 2015-07-04 PELLETS nullFlavo Dainel [id number] -8 [facility] 20:00:00 20:00:00 aime Gifford [id number] cary ZARAGOZA, [place] [id number] [facility] [id number] 2015-07-04 2015-07-04 Outpatient Daniel Daniel [id number] eClinic 15:00:00 15:00:00 Balta Gifford al Works MD, SHAUN ZARAGOZA, [place] 2015-05-21 2015-05-21 Unknown nullFlavo Daniel [id number] -1 [facility] 19:35:00 19:35:00 aime Gifford [id number] cary ZARAGOZA, [place] [id number]-[id number] [facility] [id number] 2015-05-21 2015-05-21 Unknown nullFlavo Daniel [id number] -8 [facility] 18:35:00 18:35:00 aime Gifford [id number] cary ZARAGOZA, [place] [id number] [facility] nn [id number] 2015-05-21 2015-05-21 Unknown nullFlavo Daniel [id number] -[id number] [facility] 18:35:00 18:35:00 aime Gifford [id number] l MD, PA [id number] [facility] nn [id number] 2015-05-21 2015-05-21 Unknown nullFlavo Daniel [id number] -b [facility] 18:35:00 18:35:00 aime Gifford [id number]-[id number] cary ZARAGOZA, [place] [id number] [facility] nn [id number] 2015-05-21 2015-05-21 Unknown nullFlavo Daniel [id number] -5 [facility] 18:35:00 18:35:00 aime Gifford [id number]-[id number] cary ZARAGOZA, SHAUN [id number] [facility] nn [id number] 2015-05-21 2015-05-21 Unknown nullFlavo Daniel [id number] -7 [facility] 18:35:00 18:35:00 aime Gifford [id number] cary ZARAGOZA, SHAUN [id number] [facility] nn [id number] 2015-05-21 2015-05-21 Outpatient Daniel Daniel [id number] [facility]Clinic 13:35:00 13:35:00 Balta Gifford al Works MD, SHAUN ZARAGOZA, SHAUN 2015-02-14 2015-02-14 pellets nullFlavo Daniel [id number] -0 [facility] 21:00:00 21:00:00 aime Gifford [id number]-[id number] cary ZARAGOZA, SHAUN [id number] [facility] nn [id number] 2015-02-14 2015-02-14 pellets nullFlavo Daniel [id number] -0 [facility] 20:00:00 20:00:00 aime Gifford [id number] cary ZARAGOZA, [place] [id number] [facility] nn [id number] 2015-02-14 2015-02-14 pellets nullFlavo Daniel [id number] -f [facility] 20:00:00 20:00:00 aime Gifford [id number] cary ZARAGOZA, [place] [id number] [facility] nn [id number] 2015-02-14 2015-02-14 pellets nullFlavo Daniel [id number] -1 [facility] 20:00:00 20:00:00 aime Gifford [id number] cary ZARAGOZA, SHAUN [id number] [facility] nn [id number] 2015-02-14 2015-02-14 pellets nullFlavo Daniel [id number] -b [facility] 20:00:00 20:00:00 r Balta [id number]-[id number] cary ZARAGOZA, [place] [id number] [facility] nn [id number] 2015-02-14 2015-02-14 pellets nullFlavo Daniel [id number] -b [facility] 20:00:00 20:00:00 r Balta [id number] cary ZARAGOZA, [place] [id number] [facility] nn [id number] 2015-01-08 2015-01-08 [place] nullFlavo Daniel [id number] -3 [facility] 22:51:00 22:51:00 r Balta [id number] cary ZARAGOZA, [place] [id number] [facility] nn [id number] 2015-01-08 2015-01-08 [place] nullFlavo Daniel [id number] -7 [facility] 21:51:00 21:51:00 aime Gifford [id number]-[id number] cary ZARAGOZA, [place] [id number] [facility] nn [id number] 2015-01-08 2015-01-08 [place] nullFlavo Daniel [id number] -9 [facility] 21:51:00 21:51:00 r Balta [id number]-4503-8 cary ZARAGOZA, [place] [id number] [facility] nn [id number] 2015-01-08 2015-01-08 [place] nullFlavo Daniel [id number] -8 [facility] 21:51:00 21:51:00 aime Gifford [id number] cary ZARAGOZA, [place] [id number] [facility] nn [id number] 2015-01-08 2015-01-08 [place] nullFlavo Daniel [id number] -6 [facility] 21:51:00 21:51:00 aime Gifford [id number]-[id number] cary ZARAGOZA, [place] [id number] Ally nn [id number] 2015-01-08 2015-01-08 [place] nullFlavo Daniel [id number] -f [facility] 21:51:00 21:51:00 aime Gifford [id number] cary ZARAGOZA, [place] [id number] Ally nn [id number] 2015-01-08 2015-01-08 [place] nullFlavo Daniel [id number] [facility] 21:51:00 21:51:00 r Balta [id number]-k cary ZARAGOZA, [place] [id number] Ally nn [id number] 2015-01-07 2015-01-07 PANCREAS ? nullFlavo Daniel da45a 62f-0 [facility] 20:15:00 20:15:00 r Balta [id number] cary ZARAGOZA, [place] [id number] Ally nn [id number] 2015-01-07 2015-01-07 PANCREAS ? nullFlavo Daniel 11d98 36b-b [facility] 19:15:00 19:15:00 r Balta [id number]-6 cary ZARAGOZA, PA [id number] Ally nn [id number] 2015-01-07 2015-01-07 PANCREAS ? nullFlavo Daniel [id number] 344-6 [facility] 19:15:00 19:15:00 r Balta e9y-[id number]-s cary ZARAGOZA, PA [id number] [facility] nn [id number] 2015-01-07 2015-01-07 PANCREAS ? nullFlavo Daniel 4acde 9d6-9 [facility] 19:15:00 19:15:00 r Balta [id number] cary ZARAGOZA, [place] [id number] [facility] nn [id number] 2015-01-07 2015-01-07 PANCREAS ? nullFlavo Daniel 85ee9 326-5 [facility] 19:15:00 19:15:00 aime Gifford [id number] cary ZARAGOZA, [place] [id number] Ally nn [id number] 2015-01-07 2015-01-07 PANCREAS ? nullFlavo Daniel ac293 5e3-4 [facility] 19:15:00 19:15:00 r Balta [id number] cary ZARAGOZA, [place] [id number] Ally nn [id number] 2015-01-07 2015-01-07 PANCREAS ? nullFlavo Daniel [id number] ce8-1 [facility] 19:15:00 19:15:00 r Balta ebe-[id number] cary ZARAGOZA, [place] [id number] Ally nn d27bcc 2015-01-07 2015-01-07 Outpatient Daniel Daniel [id number] [facility]inic 14:15:00 14:15:00 Balta Gifford al Anna ZARAGOZA, SHAUN ZARAGOZA, [place] 2014-12-18 2014-12-18 Unknown nullFlavo Daniel [id number] -d [facility] 18:47:00 18:47:00 r Balta j6r-8275-n cary AZRAGOZA, [place] 99d-8b1f9a [facility] nn [id number] 9470-03-25 2014-12-18 Unknown nullFlavo Daniel [id number] -3 [facility] 18:14:00 18:14:00 r Balta 758-43ab-a cary ZARAGOZA, [place] fe5-178a6d [facility] nn [id number] 2014-12-18 2014-12-18 Unknown nullFlavo Daniel [id number] -8 [facility] 17:47:00 17:47:00 r Balta 827-4f6f-flora townsend MD, PA e8x-4zpg6s [facility] nn 5ic500 2014-12-18 2014-12-18 Unknown nullFlavo Daniel [id number] -c [facility] 17:47:00 17:47:00 aime Gifford 9cb-483a-8 cary ZARAGOZA, [place] efd-8a9b7a [facility] nn [id number] 2014-12-18 2014-12-18 Unknown nullFlavo Daniel [id number] -f [facility] 17:47:00 17:47:00 aime Gifford 417-464f-flora townsend MD, [place] 81b-28d05d [facility] nn b853b3 2014-12-18 2014-12-18 Unknown nullFlavo Daniel [id number] -e [facility] 17:47:00 17:47:00 r Balta 628-4316-a cary ZARAGOZA, [place] 8ed-1b98fd [facility] nn 468f81 2014-12-18 2014-12-18 Unknown nullFlavo Daniel [id number] -3 [facility] 17:47:00 17:47:00 r Balta 9j6-1z3h-0 l , PA 27d-b68b22 [facility] nn 4c3b4f 2014-12-18 2014-12-18 Unknown nullFlavo Daniel [id number] -c [facility] 17:47:00 17:47:00 r Balta 79c-4259-9 l , PA af4-80fc23 [facility] nn 04b208 2014-12-18 2014-12-18 Unknown nullFlavo Daniel 0dks8q03 -d [facility] 17:47:00 17:47:00 r Balta bb9-4fed-b cary ZARAGOZA, PA ded-097265 [facility] nn 51b82a 2014-12-18 2014-12-18 Unknown nullFlavo Daniel [id number] -8 [facility] 17:47:00 17:47:00 r Balta 3a2-0yv5-m cary ZARAGOZA, [place] 73e-e4f1cd [facility] nn 5eef83 2014-12-18 2014-12-18 Unknown nullFlavo Daniel 67v1bb60 -0 [facility] 17:14:00 17:14:00 r Balta 6dd-4d64-9 cary ZARAGOZA, PA [id number] [facility] nn [id number] 7912-03-25 2014-12-18 Unknown nullFlavo Daniel [id number] -4 [facility] 17:14:00 17:14:00 r Balta 2p3-4s88-j cary ZARAGOZA, [place] 1e4-v24a0y [facility] nn a38c1a 2014-12-18 2014-12-18 Unknown nullFlavo Daniel [id number] -2 [facility] 17:14:00 17:14:00 r Balta p2j-3i90-0 cary ZARAGOZA, PA 152-8yb097 [facility] nn ql2379 2014-12-18 2014-12-18 Unknown nullFlavo Daniel pa13d5v4 -0 [facility] 17:14:00 17:14:00 r Balta ffe-46e4-a cary ZARAGOZA, [place] o0l-734706 [facility] nn 57d4af 2014-12-18 2014-12-18 Unknown nullFlavo Daniel tksnj0x8 -1 [facility] 17:14:00 17:14:00 r Balta 3be-4cc3-9 cary ZARAGOZA, PA 0b7-06gp74 [facility] nn b8bbec 2014-12-18 2014-12-18 Unknown nullFlavo Daniel [id number] -7 [facility] 17:14:00 17:14:00 aime Gifford 53a-46e4-a cary ZARAGOZA, SHAUN 2q5-5bmt6f [facility] nn [id number] 2014-12-18 2014-12-18 Unknown nullFlavo Dnaiel [id number] -4 [facility] 17:14:00 17:14:00 aime Gfiford 4bd-416c-b cary ZARAGOZA, SHAUN l41-3h2221 [facility] nn [id number] 2014-12-18 2014-12-18 Unknown nullFlavo Daniel [id number] -d [facility] 17:14:00 17:14:00 aime Gifford ef9-4e57-a cary ZARAGOZA, SHAUN 4ad-6f5c58 [facility] nn fb5bda 2014-12-18 2014-12-18 Outpatient Daniel Daniel [id number] eClinic 12:47:00 12:47:00 Balta Gifford al Works MD, SHAUN ZARAGOZA, PA 2014-12-18 2014-12-18 Outpatient Daniel Daniel [id number] eClinic 12:14:00 12:14:00 Balta Gifford al Works MD, SHAUN ZARAGOZA, PA 2014-08-14 2014-08-14 FOLLOW UP nullFlavo Daniel [id number] 7d-6 [facility] 22:00:00 22:00:00 FROM aime Gifford 56d-4f19-b cary ALVARADO MD, PA 6g1-8466d9 Her [facility] AND HIGH [id number] BP 2014-08-14 2014-08-14 FOLLOW UP nullFlavo Daniel [id number] 1e-3 [facility] 22:00:00 22:00:00 FROM aime Gifford a79-11d3-2 cary ALVARADO MD, PA [id number] [facility] AND HIGH aac15a BP 2014-08-14 2014-08-14 FOLLOW UP nullFlavo Daniel v8771m 22-3 [facility] 22:00:00 22:00:00 FROM aime Gifford, n1u-3kh9-5 cary ALVARADO MD, PA eed-2v500w [facility] AND HIGH 6ebc88 BP 2014-08-14 2014-08-14 FOLLOW UP nullFlavo Daniel a3a083 fa-6 [facility] 22:00:00 22:00:00 FROM aime Gifford, 55c-41f1-8 cary ALVARADO MD, PA 84e-vv0534 [facility] AND HIGH 353f50 BP 2014-08-14 2014-08-14 FOLLOW UP nullFlavo Daniel [id number] b2-1 [facility] 21:00:00 21:00:00 FROM aime Gifford, v17-98zf-7 cary ALVARADO MD, PA 7p0-081lxa [facility] AND HIGH b163f7 BP 2014-08-14 2014-08-14 FOLLOW UP nullFlavo Daniel af1f64 a7-c [facility] 21:00:00 21:00:00 FROM aime Gifford, i59-9fg8-9 cary ALVARADO MD, PA 811-87f52a Her li AND HIGH 92q762 BP 2014-08-14 2014-08-14 FOLLOW UP nullFlavo Daniel dd5d7b 28-a [facility] 21:00:00 21:00:00 FROM aime Gifford, 1h4-3419-v cary ALVARADO MD, PA a58-n49526 [facility] AND HIGH n03515 BP 2014-08-14 2014-08-14 FOLLOW UP nullFlavo Daniel lf565i 09-a [facility] 21:00:00 21:00:00 FROM aime Gifford, 680-4968-b cary ALVARADO MD, PA l8s-717825 [facility] AND HIGH fu4211 BP 2014-08-14 2014-08-14 FOLLOW UP nullFlavo Daniel 1f7630 94-2 [facility] 21:00:00 21:00:00 FROM aime Gifford, 09f-499f-8 cary ALVARADO MD, PA 8cf-69a77c Her li AND HIGH x1c906 BP 2014-08-14 2014-08-14 FOLLOW UP nullFlavo Daniel 2f8d3a 7b-a [facility] 21:00:00 21:00:00 FROM aime Gifford, w72-0j79-0 cary ALVARADO MD, PA 00a-1o9143 [facility] AND HIGH x6151v BP 2014-08-14 2014-08-14 FOLLOW UP nullFlavo Daniel 7a8aa1 a3-f [facility] 21:00:00 21:00:00 FROM aime Gifford, jennifer-422a-8 cary ALVARADO MD, PA ddb-0x0881 Her li AND HIGH 28061x BP 2014-08-14 2014-08-14 FOLLOW UP nullFlavo Daniel 1af4e1 55-e [facility] 21:00:00 21:00:00 FROM aime Gifford, 90f-4044-b cary ALVARADO MD, SHAUN e98-wx501s Her li AND HIGH 54e92e BP 2014-08-14 2014-08-14 Outpatient Daniel Daniel [id number] [facility]inic 16:00:00 16:00:00 Balta Gifford, itzel Castillo MD, SHAUN ZARAGOZA, PA 2014-07-26 2014-07-26 [facility] [employer] nullFlavo Daniel 00f00 d53-f [facility] 22:00:00 22:00:00 aime Gifford 813-4ede-a cary ZARAGOZA, SHAUN u0h-198p70 [facility] nn fb52d7 2014-07-26 2014-07-26 [facility] [employer] nullFlavo Daniel 7d2ff 132-a [facility] 22:00:00 22:00:00 aime Gifford 885-4bab-a cary ZARAGOZA, SHAUN aec-2e400f [facility] nn 93e9d7 2014-07-26 2014-07-26 [facility] [employer] nullFlavo Daniel 81d43 478-a [facility] 22:00:00 22:00:00 aime Gifford 2af-4982-a cary ZARAGOZA, SHAUN s4z-k37iaq [facility] nn fd62d6 2014-07-26 2014-07-26 [facility] nullFlavo Daniel f0303 85f-f [facility] 22:00:00 22:00:00 aime Gifford 0l2-9817-o SHAUN townsend MD 16b-57ef64 [facility] nn fbdc90 2014-07-26 2014-07-26 [facility] [employer] nullFlavo Daniel ab3b5 21f-2 [facility] 21:00:00 21:00:00 r Balta 348-40c9-8 l , PA p73-977p1x [facility] nn e977b6 2014-07-26 2014-07-26 [facility] [employer] nullFlavo Daniel b505d 34c-3 [facility] 21:00:00 21:00:00 r Balta 8k9-6uzk-z cary ZARAGOZA, [place] xochilt-1547b9 [facility] nn [id number] 2014-07-26 2014-07-26 [facility] nullFlavo Daniel bd4a3 c68-2 [facility] 21:00:00 21:00:00 r Balta n91-3o64-9 cary ZARAGOZA, [place] 1m7-891x83 [facility] nn 9fe7df 2014-07-26 2014-07-26 [facility] nullFlavo Daniel 0d425 649-5 [facility] 21:00:00 21:00:00 r Balta 116-4d4d-8 l , PA 71d-eb8b2f [facility] nn ks937q 2014-07-26 2014-07-26 [facility] [employer] nullFlavo Daniel cef23 338-b [facility] 21:00:00 21:00:00 r Balta e09-7a20-g cary ZARAGOZA, [place] x71-0xe216 [facility] nn fb54cf 2014-07-26 2014-07-26 [facility] [place] nullFlavo Daniel 9a2bb 715-9 [facility] 21:00:00 21:00:00 r Balta 775-4645-8 l , PA ec5-f2aa5d [facility] nn 0fe8ee 2014-07-26 2014-07-26 [facility] nullFlavo Daniel 10f24 6fa-6 [facility] 21:00:00 21:00:00 r Balta n91-6124-7 cary ZARAGOZA, PA [id number] [facility] nn 314245 5968-10-31 2014-07-26 [facility] nullFlavo Daniel adfb0 38a-a [facility] 21:00:00 21:00:00 r Balta 368-4d18-9 cary ZARAGOZA, PA 312-0u7708 [facility] nn 37e2b9 2014-07-26 2014-07-26 Outpatient Daniel Daniel [id number] eClinic 16:00:00 16:00:00 Balta Gifford al Works MD, SHAUN ZARAGOZA, PA 2014-07-18 2014-07-18 Unknown nullFlavo Daniel u0qli2dd -4 [facility] 20:26:00 20:26:00 r Balta 923-4f94-b cary ZARAGOZA, PA p1r-47b403 [facility] nn b519af 2014-07-18 2014-07-18 Unknown nullFlavo Daniel [id number] -3 [facility] 20:26:00 20:26:00 r Balta 016-4162-8 cary ZARAGOZA, [place] 3z5-9657m5 [facility] nn 4ec0a6 2014-07-18 2014-07-18 Unknown nullFlavo Daniel [id number] -a [facility] 20:26:00 20:26:00 r Balta fee-4dba-9 cary ZARAGOZA, PA mirtha-0ccc41 [facility] nn abdc96 2014-07-18 2014-07-18 Unknown nullFlavo Daniel 86f0c4v1 -a [facility] 20:26:00 20:26:00 aime Gifford n44-81k6-1 cary ZARAGOZA, PA j55-3t9k02 [facility] nn 1a0a32 2014-07-18 2014-07-18 Unknown nullFlavo Daniel 60s5y4w0 -f [facility] 19:26:00 19:26:00 aime Gifford af5-48d7-8 cary ZARAGOZA, PA 91a-rc8611 [facility] nn fb8b71 2014-07-18 2014-07-18 Unknown nullFlavo Danile [id number] -6 [facility] 19:26:00 19:26:00 r Balta ff2-4542-8 cary ZARAGOZA, [place] cef-zjd944 [facility] nn 95l429 2014-07-18 2014-07-18 Unknown nullFlavo Daniel u99pvf31 -4 [facility] 19:26:00 19:26:00 r Balta 294-4e50-b cary ZARAGOZA, [place] 457-923b9f [facility] nn c9a02a 2014-07-18 2014-07-18 Unknown nullFlavo Daniel ouz5v919 -0 [facility] 19:26:00 19:26:00 r Balta g87-9u0x-a cary ZARAGOZA, [place] 0cc-10be4d [facility] nn 4e1efc 2014-07-18 2014-07-18 Unknown nullFlavo Daniel 05v0547s -7 [facility] 19:26:00 19:26:00 r Balta 22e-4e37-9 cary ZARAGOZA, PA ff4-1d2f19 [facility] nn 06066p 2014-07-18 2014-07-18 Unknown nullFlavo Daniel 04fh2g62 -f [facility] 19:26:00 19::00 r Balta cb7-4373-a cary ZARAGOZA, PA f6j-086351 [facility] nn 58212d 2014-07-18 2014-07-18 Unknown nullFlavo Daniel 32h83j53 -1 [facility] 19:26:00 19::00 r Balta p97-120m-1 cary ZARAGOZA, [place] o93-w100x0 [facility] nn 35e24c 2014-07-18 2014-07-18 Unknown nullFlavo Daniel [id number] -7 [facility] 19:26:00 19::00 r Balta 23c-48e2-9 cary ZARAGOZA, [place] m02-9ofkm6 [facility] nn 75a6da 2014-07-18 2014-07-18 Outpatient Daniel Daniel [id number] eClinic 14:26:00 14:26:00 Balta Gifford al Works MD, SHAUN ZARAGOZA, PA 2014-05-03 2014-05-03 Pellets nullFlavo Daniel [id number] -d [facility] 21:00:00 21:00:00 r Balta cc5-4dd7-a cary ZARAGOZA, SHAUN 46e-1i5990 [facility] nn 55842d 2014-05-03 2014-05-03 Pellets nullFlavo Daniel 8fe88k5i -9 [facility] 21:00:00 21:00:00 r Balta 2e6-0472-v cary ZARAGOZA, [place] 545-2f56c8 [facility] nn 1cbe90 2014-05-03 2014-05-03 Pellets nullFlavo Daniel 969bv8d0 -d [facility] 21:00:00 21:00:00 r Balta t82-35xf-8 cary ZARAGOZA, [place] 84f-75b5b0 [facility] nn 032e84 2014-05-03 2014-05-03 Pellets nullFlavo Daniel 39x14gkk -9 [facility] 21:00:00 21:00:00 r Balta edf-4d83-9 cary ZARAGOZA, PA s47-72603f [facility] nn 7t4872 2014-05-03 2014-05-03 Pellets nullFlavo Daniel 45git595 -a [facility] 20:00:00 20:00:00 aime Gifford o6w-38o8-8 cary ZARAGOZA, [place] p93-9h8d89 [facility] nn f98bd8 2014-05-03 2014-05-03 Pellets nullFlavo Daniel [id number] -e [facility] 20:00:00 20:00:00 aime Gifford t7h-70p0-e cary ZARAGOZA, [place] 3o9-o4m0y1 [facility] nn 7ffae5 2014-05-03 2014-05-03 Pellets nullFlavo Daniel q6910f92 -3 [facility] 20:00:00 20:00:00 aime Gifford 620-417b-a cary ZARAGOZA, [place] 79d-7ae421 [facility] nn b2c7f1 2014-05-03 2014-05-03 Pellets nullFlavo Daniel 4sq815jf -1 [facility] 20:00:00 20:00:00 aime Gifford 36f-4ef8-flora townsend MD, [place] 087-e073e3 [facility] nn f556a2 2014-05-03 2014-05-03 Pellets nullFlavo Daniel 317d42i4 -4 [facility] 20:00:00 20:00:00 aime Gifford 5ea-495c-a cary ZARAGOZA, [place] 9b1-75937a [facility] nn 551686 4755-08-08 2014-05-03 Pellets nullFlavo Daniel u83a0l99 -9 [facility] 20:00:00 20:00:00 aime Gifford b4w-0774-6 cary ZARAGOZA, [place] bde-484d07 [facility] 599dc0 2014-05-03 2014-05-03 Pellets nullFlavo Daniel 1b7ni343 -0 [facility] 20:00:00 20:00:00 aime Gifford 49a-41d3-9 cary ZARAGOZA, PA ab9-4d6444 [facility] 40j265 2014-05-03 2014-05-03 Pellets nullFlavo Daniel 42966q82 -9 [facility] 20:00:00 20:00:00 aime Gifford j5h-9ka6-s cary ZARAGOZA, PA 9p6-7hs4wk [facility] 3ebc57 2014-05-03 2014-05-03 Pellets nullFlavo Daniel [id number] -4 [facility] 20:00:00 20:00:00 aime Gifford o16-3h23-1 cary ZARAGOZA, PA a7d-50l430 [facility] ddce09 2014-05-03 2014-05-03 Outpatient Daniel Daniel [id number] eClinic 15:00:00 15:00:00 Balta Gifford al Works MD, SHAUN ZARAGOZA, [place] Results Test Description Test Time Test Comments Results Result Comments Source CHEM PANEL 2022-02-11 09:48:00 Test Item Value Reference Range Interpretation Comme nts Glucose Lvl (test code = Glucose Lvl) 86 70-99 [facility] [id number] 09:48:00 Test Item Value Reference Range Interpretation Comments BUN (test code = BUN) 15 7-22 [facility] [id number] 09:48:00 Test Item Value Reference Range Interpretation Comments Creatinine Lvl (test code = Creatinine 1.10 0.50-1.40 Lvl) [facility] [id number] 09:48:00 Test Item Value Reference Range Interpretation Comments Sodium Lvl (test code = Sodium Lvl) 137 135-145 [facility] [id number] 09:48:00 Test Item Value Reference Range Interpretation Comments Potassium Lvl (test code = Potassium 3.9 3.5-5.1 Lvl) [place] [address]-05-19 09:48:00 Test Item Value Reference Range Interpretation Comments Chloride Lvl (test code = Chloride Lvl) 103 95-109 [place] 099462-05-19 09:48:00 Test Item Value Reference Range Interpretation Comments CO2 (test code = CO2) 24 24-32 [place] 099462-05-19 09:48:00 Test Item Value Reference Range Interpretation Comments AGAP (test code = AGAP) 13.9 10.0-20.[address]05-19 09:48:00 Test Item Value Reference Range Interpretation Comments Calcium Lvl (test code = Calcium Lvl) 7.7 8.5-10.5 [place] 099462-05-19 09:48:00 Test Item Value Reference Range Interpretation Comments B/C Ratio (test code = B/C Ratio) 14 1 6-[address]05-19 09:48:00 Test Item Value Reference Range Interpretation Comments Total Protein (test code = Total 7.1 6.4-8.4 Protein) [place] 099462-05-19 09:48:00 Test Item Value Reference Range Interpretation Comments Albumin Lvl (test code = Albumin Lvl) 3.4 3.5-5.[address]05-19 09:48:00 Test Item Value Reference Range Interpretation Comments Globulin (test code = Globulin) 3.7 2.7-4.2 [place] 099462-05-19 09:48:00 Test Item Value Reference Range Interpretation Comments A/G Ratio (test code = A/G Ratio) 0.9 1 0.7-1.6 [place] [address]-05-19 09:48:00 Test Item Value Reference Range Interpretation Comments ALANINE AMINOTRANSFERASE 18 See_Comment [A utomated message] (test code = ALANINE The sys tem which AMINOTRANSFERASE) generated this result transmitted ref erence range: <=65. Th e reference range was not used to int erpret this result as normal/abnormal . [place] 099462-05-19 09:48:00 Test Item Value Reference Range Interpretation Comments AST (test code = AST) 28 See_Comment [Auto mated message] The system which ge nerated this result transmit sergio reference range : <=37. The reference range was not used to interpr et this result as christianne l/abnormal. [place] 099462-05-19 09:48:00 Test Item Value Reference Range Interpretation Comments Alk Phos (test code = Alk Phos) 54 39-136 [place] 099462-05-19 09:48:00 Test Item Value Reference Range Interpretation Comments Bili Total (test code = Bili Total) 0.7 0.2-1.3 [place] 099462-05-19 09:48:00 Test Item Value Reference Range Interpretation Comments eGFR (test code = eGFR) 55 [place] 099462-05-19 09:48:00 Test Item Value Reference Range Interpretation Comments Magnesium Lvl (test code = Magnesium 1.6 1.8-2.4 Lvl) [place] 099462-05-19 09:48:00 Test Item Value Reference Range Interpretation Comments Phosphorus (test code = Phosphorus) 2.2 2.5-4.5 [place] 168882-05-19 09:11:00 Test Item Value Reference Range Interpretation Comments WBC X 10x3 (test code = WBC X 10x3) 6.7 3.7-10.4 [place] 168882-05-19 09:11:00 Test Item Value Reference Range Interpretation Comments RBC X 10x6 (test code = RBC X 10x6) 4.40 4.20-5.40 [place] 168882-05-19 09:11:00 Test Item Value Reference Range Interpretation Comments Hgb (test code = Hgb) 14.3 12.0-16.0 [place] [address]-05-19 09:11:00 Test Item Value Reference Range Interpretation Comments Hct (test code = Hct) 42.0 36.0-48.0 [place] [address]-05-19 09:11:00 Test Item Value Reference Range Interpretation Comments MCV (test code = MCV) 95.6 80.0-98.0 [place] [address]-05-19 09:11:00 Test Item Value Reference Range Interpretation Comments MCH (test code = MCH) 32.4 pg 27.0-31.0 [place] [address]-05-19 09:11:00 Test Item Value Reference Range Interpretation Comments MCHC (test code = MCHC) 33.9 32.0-36.0 [place] 168882-05-19 09:11:00 Test Item Value Reference Range Interpretation Comments RDW (test code = RDW) 12.7 11.5-14.5 [place] [address]-05-19 09:11:00 Test Item Value Reference Range Interpretation Comments Platelet (test code = Platelet) 187 133-450 [place] 168882-05-19 09:11:00 Test Item Value Reference Range Interpretation Comments MPV (test code = MPV) 8.0 7.4-10.4 [place] [address]-05-19 09:11:00 Test Item Value Reference Range Interpretation Comments Segs (test code = Segs) 65.3 45.0-75.0 [place] [address]-05-19 09:11:00 Test Item Value Reference Range Interpretation Comments Lymphocytes (test code = Lymphocytes) 24.2 20.0-40.0 [place] 168882-05-19 09:11:00 Test Item Value Reference Range Interpretation Comments Monocytes (test code = Monocytes) 9.8 2.0-12.0 [place] [address]-05-19 09:11:00 Test Item Value Reference Range Interpretation Comments Eosinophils (test code = 0.3 See_Comment [A utomated message] The Eosinophils) system which ge nerated this result tra nsmitted reference range : <=4.0. The reference r titus was not used to int erpret this result as normal/abnormal . [facility] 09:11:00 Test Item Value Reference Range Interpretation Comments Basophils (test code = 0.4 See_Comment [Aut omated message] The Basophils) system which ge nerated this result tra nsmitted reference range : <=1.0. The reference r titus was not used to int erpret this result as normal/abnormal . [place] [address]-05-19 09:11:00 Test Item Value Reference Range Interpretation Comments Neutrophils # (test code = Neutrophils 4.4 1.5-8.1 #) [place] 168882-05-19 09:11:00 Test Item Value Reference Range Interpretation Comments Lymphocytes # (test code = Lymphocytes 1.6 1.0-5.5 #) [facility]OMNJBJONKE7911-18-91 09:11:00 Test Item Value Reference Range Interpretation Comments Monocytes # (test code 0.7 See_Comment [Aut omated message] The = Monocytes #) system which generated this result tra nsmitted reference range : <=0.8. The reference r titus was not used to int erpret this result as normal/abnormal . [facility] MbfbdnjXPLVRV6114-23-27 22:42:00 Test Item Value Reference Range Interpretation Comments Trig (test code = Trig) 160 [facility] HospitalWvqcwurCGYUFK9513-67-97 22:42:00 Test Item Value Reference Range Interpretation Comments Chol (test code = Chol) 215 [facility] HospitalDuvtteaMZUALB3591-94-88 22:42:00 Test Item Value Reference Range Interpretation Comments HDL (test code = HDL) 92 [facility] HospitalHvhznjiLIVNWD1200-28-95 22:42:00 Test Item Value Reference Range Interpretation Comments CHD Risk (test code = CHD Risk) 2.34 1 3.90-5.80 [facility] HospitalQkmjvbnBYVXJM1300-96-53 22:42:00 Test Item Value Reference Range Interpretation Comments LDL (Calculated) (test code = LDL 91 (Calculated)) [facility] HospitalPgyqwipOUKTZZ2149-21-27 22:42:00 Test Item Value Reference Range Interpretation Comments VLDL (test code = VLDL) 32 1 [facility] CZRFPTQFK9577-30-84 22:42:00 Test Item Value Reference Range Interpretation Comments Hgb A1C (test code = Hgb A1C) 5.2 [facility]ann[facility] [id number] 20:59:00 Test Item Value Reference Range Interpretation Comments Ammonia (test code = Ammonia) 22.0 [facility] [id number] 16:23:00 Test Item Value Reference Range Interpretation Comments U Amph Scr (test code Negative *NA*(02/10/22 = U Amph Scr) 11:23 AM) [facility] [id number] 16:23:00 Test Item Value Reference Range Interpretation Comments U Ann Scr (test code Negative *NA*(02/10/22 = U Ann Scr) 11:23 AM) [facility] [id number] 16:23:00 Test Item Value Reference Range Interpretation Comments U Benzodiaz Scr (test Positive *ABN*(02/10/22 code = U Benzodiaz Scr) 11:23 AM) [facility] [id number] 16:23:00 Test Item Value Reference Range Interpretation Comments U Cocaine Scr (test Negative *NA*(02/10/22 code = U Cocaine Scr) 11:23 AM) [facility] [id number] 16:23:00 Test Item Value Reference Range Interpretation Comments U Cannab Scr (test Negative *NA*(02/10/22 code = U Cannab Scr) 11:23 AM) [facility] [id number] 16:23:00 Test Item Value Reference Range Interpretation Comments U Opiate Scr (test Negative *NA*(02/10/22 code = U Opiate Scr) 11:23 AM) [facility] [id number] 16:23:00 Test Item Value Reference Range Interpretation Comments U Phencyclidine Scr (test Negative code = U Phencyclidine *NA*(02/10/22 11:23 Scr) AM) [facility] [id number] 16:23:00 Test Item Value Reference Range Interpretation Comments UDS Note (test code = See Note (02/10/22 11:23 UDS Note) AM) [facility] [id number] 16:12:00 Test Item Value Reference Range Interpretation Comments UA Color (test code = Light Yellow UA Color) *NA*(02/10/22 11:12 AM) [facility] [id number] 16:12:00 Test Item Value Reference Range Interpretation Comments UA Turbidity (test code = Clear (02/10/22 11:12 UA Turbidity) AM) [facility] [id number] 16:12:00 Test Item Value Reference Range Interpretation Comments UA Spec Grav (test code = UA Spec 1.011 1 Grav) [facility] [id number] 16:12:00 Test Item Value Reference Range Interpretation Comments UA pH (test code = UA pH) 6.0 1 5.0-8.0 [facility] [id number] 16:12:00 Test Item Value Reference Range Interpretation Comments UA Protein (test code = UA Negative mg/dL Protein) [facility] [id number] 16:12:00 Test Item Value Reference Range Interpretation Comments UA Glucose (test code = UA Negative mg/dL Glucose) [facility] [id number] 16:12:00 Test Item Value Reference Range Interpretation Comments UA Ketones (test code = UA Negative mg/dL Ketones) [facility] [id number] 16:12:00 Test Item Value Reference Range Interpretation Comments UA Bili (test code = Negative *NA*(02/10/22 UA Bili) 11:12 AM) [facility] [id number] 16:12:00 Test Item Value Reference Range Interpretation Comments UA Blood (test code = Small *ABN*(02/10/22 UA Blood) 11:12 AM) [facility] [id number] 16:12:00 Test Item Value Reference Range Interpretation Comments UA Nitrite (test code Negative (02/10/22 11:12 = UA Nitrite) AM) [facility] [id number] 16:12:00 Test Item Value Reference Range Interpretation Comments UA Leuk Est (test Negative (02/10/22 11:12 code = UA Leuk Est) AM) [facility] [id number] 16:12:00 Test Item Value Reference Range Interpretation Comments UA Sq Epi (test code = UA Sq Moderate /LPF Epi) [facility] [id number] 16:12:00 Test Item Value Reference Range Interpretation Comments UA WBC (test code = 1 See_Comment [Automa sergio message] The UA WBC) system which ge nerated this result transmit sergio reference range : <=5. The reference range was not used to interpr et this result as christianne l/abnormal. [facility] [id number] 16:12:00 Test Item Value Reference Range Interpretation Comments UA RBC (test code = 1 See_Comment [Automa sergio message] The UA RBC) system which ge nerated this result transmit sergio reference range : <=2. The reference range was not used to interpr et this result as christianne l/abnormal. [facility] [id number] 16:12:00 Test Item Value Reference Range Interpretation Comments UA Bacteria (test code = UA Occasional /HPF Bacteria) [facility] [id number] 16:12:00 Test Item Value Reference Range Interpretation Comments UA Mucus (test code = UA Mucus) [facility] [id number] 16:12:00 Test Item Value Reference Range Interpretation Comments UA Urobilinogen (test code = UA <=1.0 mg/dL 0.1-1.0 Urobilinogen) [id number] 16:05:00 Test Item Value Reference Range Interpretation Comments Coronavirus (COVID-19) Not Detected (02/10/22 BONNY (test code = 11:05 AM) Coronavirus (COVID-19) BONNY) [id number] 16:04:00 Test Item Value Reference Range Interpretation Comments Total CK (test code = Total CK) 106 12-191 [facility] [id number] 16:04:00 Test Item Value Reference Range Interpretation Comments HS Troponin I (test code = HS Troponin no gt I) [facility] [id number] 16:04:00 Test Item Value Reference Range Interpretation Comments Glucose Lvl (test code = Glucose Lvl) 108 70-99 [facility] [id number] 16:04:00 Test Item Value Reference Range Interpretation Comments BUN (test code = BUN) 15 7-22 [facility] [id number] 16:04:00 Test Item Value Reference Range Interpretation Comments Creatinine Lvl (test code = Creatinine 1.00 0.50-1.40 Lvl) [facility] [id number] 16:04:00 Test Item Value Reference Range Interpretation Comments Sodium Lvl (test code = Sodium Lvl) 141 135-145 [facility] [id number] 16:04:00 Test Item Value Reference Range Interpretation Comments Potassium Lvl (test code = Potassium 4.4 3.5-5.1 Lvl) [facility] [id number] 16:04:00 Test Item Value Reference Range Interpretation Comments Chloride Lvl (test code = Chloride Lvl) 105 95-109 [facility] [id number] 16:04:00 Test Item Value Reference Range Interpretation Comments CO2 (test code = CO2) 25 24-32 [facility] [id number] 16:04:00 Test Item Value Reference Range Interpretation Comments Calcium Lvl (test code = Calcium Lvl) 8.3 8.5-10.5 [facility] [id number] 16:04:00 Test Item Value Reference Range Interpretation Comments Total Protein (test code = Total 7.7 6.4-8.4 Protein) [facility] [id number] 16:04:00 Test Item Value Reference Range Interpretation Comments Albumin Lvl (test code = Albumin Lvl) 3.8 3.5-5.0 [facility] [id number] 16:04:00 Test Item Value Reference Range Interpretation Comments ALT (test code = ALT) 24 See_Comment [Auto mated message] The system which ge nerated this result transmit sergio reference range : <=65. The reference range was not used to interpr et this result as christianne l/abnormal. [facility] [id number] 16:04:00 Test Item Value Reference Range Interpretation Comments AST (test code = AST) 26 See_Comment [Auto mated message] The system which ge nerated this result transmit sergio reference range : <=37. The reference range was not used to interpr et this result as christianne l/abnormal. [facility] [id number] 16:04:00 Test Item Value Reference Range Interpretation Comments Alk Phos (test code = Alk Phos) 57 39-136 [facility] [id number] 16:04:00 Test Item Value Reference Range Interpretation Comments Bili Total (test code = Bili Total) 0.4 0.2-1.3 [facility] [id number] 16:04:00 Test Item Value Reference Range Interpretation Comments AGAP (test code = AGAP) 15.4 10.0-20.0 [facility] FFFavs2022-05-18 16:04:00 Test Item Value Reference Range Interpretation Comments B/C Ratio (test code = B/C Ratio) 15 1 6-25 [facility] [id number] 16:04:00 Test Item Value Reference Range Interpretation Comments Globulin (test code = Globulin) 3.9 2.7-4.2 [facility] FFFavs2022-05-18 16:04:00 Test Item Value Reference Range Interpretation Comments A/G Ratio (test code = A/G Ratio) 1.0 1 0.7-1.6 [facility]2022-05-18 16:04:00 Test Item Value Reference Range Interpretation Comments eGFR (test code = eGFR) 61 [facility]rrjxsrINBNEJNWZN7494-49-60 16:04:00 Test Item Value Reference Range Interpretation Comments WBC (test code = WBC) 4.9 3.7-10.[address] [facility]sqazscLDLUXIVXRU3633-43-05 16:04:00 Test Item Value Reference Range Interpretation Comments RBC (test code = RBC) 4.57 4.20-5.40 [facility] HospitalGclmcxyJDWYEIJXHR7701-06-93 16:04:00 Test Item Value Reference Range Interpretation Comments Hgb (test code = Hgb) 15.0 12.0-16.0 [facility]widEXTTXXQMQR4892-69-38 16:04:00 Test Item Value Reference Range Interpretation Comments Hct (test code = Hct) 42.8 36.0-48.0 [facility] HospitalYbmlbeqKZWQENVFWI5019-93-86 16:04:00 Test Item Value Reference Range Interpretation Comments MCV (test code = MCV) 93.6 80.0-98.0 [facility] CenterYyqmltpLXJTWIRHOR0217-34-36 16:04:00 Test Item Value Reference Range Interpretation Comments MCH (test code = MCH) 32.8 pg 27.0-31.0 [facility] CenterKmlpbsrMJEAABZXUO4835-19-30 16:04:00 Test Item Value Reference Range Interpretation Comments MCHC (test code = MCHC) 35.0 32.0-36.0 [facility] HospitalFdtnwqqOLBGXBSPSK3524-36-64 16:04:00 Test Item Value Reference Range Interpretation Comments RDW (test code = RDW) 13.0 11.5-14.5 [facility] HospitalKobawhvDGRXKNNPKJ2560-64-40 16:04:00 Test Item Value Reference Range Interpretation Comments Platelet (test code = Platelet) 235 133-[address] [facility] [address] HospitalFbjdhsjJUSTVSUBQS5414-91-61 16:04:00 Test Item Value Reference Range Interpretation Comments MPV (test code = MPV) 7.3 7.4-10.4 [facility] HospitalWxdiezqAHTAMTSFKV9645-09-92 16:04:00 Test Item Value Reference Range Interpretation Comments PT (test code = PT) 12.8 s 12.0-14.7 [place] 168882-05-18 16:04:00 Test Item Value Reference Range Interpretation Comments INR (test code = INR) 0.97 1 0.85-1.17 [place] 168882-05-18 16:04:00 Test Item Value Reference Range Interpretation Comments PTT (test code = PTT) 27.7 s 22.9-35.8 [place] [address]-05-18 16:04:00 Test Item Value Reference Range Interpretation Comments Segs (test code = Segs) 49.8 45.0-75.0 [place] [address]-05-18 16:04:00 Test Item Value Reference Range Interpretation Comments Lymphocytes (test code = Lymphocytes) 38.7 20.0-40.0 [place] [address]-05-18 16:04:00 Test Item Value Reference Range Interpretation Comments Monocytes (test code = Monocytes) 9.0 2.0-12.0 [place] 168882-05-18 16:04:00 Test Item Value Reference Range Interpretation Comments Eosinophils (test code = 0.4 See_Comment [A utomated message] The Eosinophils) system which ge nerated this result tra nsmitted reference range : <=4.0. The reference r titus was not used to int erpret this result as normal/abnormal . [facility] HospitalRgftgedHYCYJIWTWM0552-89-11 16:04:00 Test Item Value Reference Range Interpretation Comments Basophils (test code = 2.1 See_Comment [Aut omated message] The Basophils) system which ge nerated this result tra nsmitted reference range : <=1.0. The reference r titus was not used to int erpret this result as normal/abnormal . [facility] HospitalUbtubotUWADUTOSXH3906-74-46 16:04:00 Test Item Value Reference Range Interpretation Comments Neutrophils # (test code = Neutrophils 2.5 1.5-8.1 #) [place] [address]-05-18 16:04:00 Test Item Value Reference Range Interpretation Comments Lymphocytes # (test code = Lymphocytes 1.9 1.0-5.5 #) [place] [address]-05-18 16:04:00 Test Item Value Reference Range Interpretation Comments Monocytes # (test code 0.4 See_Comment [Aut omated message] The = Monocytes #) system which generated this result tra nsmitted reference range : <=0.8. The reference r titus was not used to int erpret this result as normal/abnormal . [facility] HospitalEskkrayAJJYTXPFHW4693-51-47 16:04:00 Test Item Value Reference Range Interpretation Comments Eosinophils # (test code 0.0 See_Comment [A utomated message] The = Eosinophils #) system whic h generated this result tra nsmitted reference range : <=0.5. The reference r titus was not used to int erpret this result as normal/abnormal . [facility] HospitalQwhymluBZZUERQZJQ5751-25-95 16:04:00 Test Item Value Reference Range Interpretation Comments Basophils # (test code 0.1 See_Comment [Aut omated message] The = Basophils #) system which generated this result tra nsmitted reference range : <=0.2. The reference r titus was not used to int erpret this result as normal/abnormal . [place] [id number] 16:04:00 Test Item Value Reference Range Interpretation Comments Ethanol Lvl (test code = Ethanol Lvl) 269 [place] 13010022-05-18 16:04:00 Test Item Value Reference Range Interpretation Comments Etoh (%) (test code = Etoh (%)) 0.269 [facility] [Presence] in Respiratory specimen by BONNY with probe ovzxlluie1365-54-21 21:58:10 Test Item Value Reference Range Interpretation Comments SARS-CoV-2 (COVID-19) RNA Not detected Not-Detected [Presence] in Respiratory specimen by BONNY with probe detection (test code = 00304-0) Whether patient is employed in a healthcare setting (test code = 18186-7) Whether the patient has symptoms related to condition of interest (test code = 64328-4) Patient was hospitalized because of this condition (test code = 83477-9) Whether the patient was admitted to intensive care unit (ICU) for condition of interest (test code = 95456-9) Whether patient resides in a congregate care setting (test code = 87402-1)
[2022-06-07] MEDS ORDERED: NA CHLORIDE 0.9% 1,000 ML ONE (14:55)
[2022-06-07] MEDS ORDERED: FENTANYL CITR 100 MCG/2 ML ONE ×2 (15:17→16:38)
[2022-06-07] MEDS ORDERED: PROMETHAZINE INJ 25 MG/ML AMP ONE ×2 (15:17→19:07)
[2022-06-07 15:22] LABS: Hematocrit 47.5 % (36.0-45.0); Lymphocytes % 31.3 % (15.3-44.8); MCV 95.5 fL (80-100); MPV 8.5 fL (7.6-11.3); RBC Red Blood Cell Count 4.98 M/uL (3.86-4.86)
[2022-06-07 15:32] LABS: Potassium 3.2 mmol/L (3.5-5.1); Troponin High Sensitivity 5.8 pg/mL (<58.9)
[2022-06-07 15:58] LABS: SARS-CoV-2 Antigen Rapid Res Negative (Negative)
--- NOTE | 2022-06-07 16:14 | RAD REPORT ---
EXAM DESCRIPTION: Nan Single View06/07/2022 2:51 pm CLINICAL HISTORY: sob COMPARISON: 2020 FINDINGS: The lungs appear clear of acute infiltrate. The heart is normal size IMPRESSION: No acute abnormalities displayed
[2022-06-07] MEDS ORDERED: NA CHLORIDE 0.9% 500 ML ONE (16:38)
[2022-06-07] MEDS ORDERED: ONDANSETRON 4 MG/2 ML VIAL ONE (16:38)
[2022-06-07] MEDS ORDERED: CIPROFLOXACIN 400mg IV 400 MG/200 ML BAG IV ONE (16:39)
[2022-06-07] MEDS ORDERED: METRONIDAZOLE 500mg IVPB 500 MG/100 ML BAG IV ONE (16:39)
[2022-06-07 16:40] LABS: Bilirubin Direct 0.2 mg/dL (0-0.2); Bilirubin Total 0.6 mg/dL (0.2-1.0); Protein, Total 7.7 g/dL (6.4-8.2)
--- NOTE | 2022-06-07 17:27 | RAD REPORT ---
EXAM DESCRIPTION: CT - Abdomen Pelvis W Contrast - 06/07/2022 5:17 pm CLINICAL HISTORY: Abdominal pain COMPARISON: none. TECHNIQUE: Computed axial tomography of the abdomen pelvis was obtained. 100 cc Isovue-300 was admin istered intravenously. Oral contrast was not requested which limits evaluation of bowel and appendix All CT scans are performed using dose optimization technique as appropriate and may include automated exposure control or mA/KV adjustment according to patient size. FINDINGS: The liver, spleen, pancreas, adrenal and kidneys appear unremarkable. There is no evidence of diverticulitis. No adnexal mass IMPRESSION: No acute abnormality is displayed.
--- NOTE | 2022-06-07 17:30 | RAD REPORT ---
EXAM DESCRIPTION: CT - Chest For Pe Angio - 06/07/2022 5:18 pm CLINICAL HISTORY: sob COMPARISON: None. TECHNIQUE: Dynamically enhanced axial 3 mm thick images of the chest were obtained during administra tion of <100> mL Isovue 370 IV contrast. Coronal and oblique reconstruction images were generated and reviewed. Exam utilizes a protocol for optimal evaluation of pulmonary arterial tree. Maximum intensity projections 3D imaging was utilized All CT scans are performed using dose optimization technique as appropriate and may include automated exposure control or mA/KV adjustment according to patient size. FINDINGS: A pulmonary embolus is not seen. A thoracic aortic aneurysm is not noted. A pleural effusion is not seen. A pericardial effusion is not seen. A lung consolidation is not present. IMPRESSION: Negative for a pulmonary embolism.
[2022-06-07] MEDS ORDERED: NS KCL 20MEQ 1,000 ML IV ONE (17:58)
[2022-06-07 18:15] LABS: Urine Blood 1+ (Negative); Urine Glucose Negative (Negative); Urine Protein Negative (Negative); Urine pH 5.5 (5.0-7.0)
--- NOTE | 2022-06-07 18:26 | EDPHYS ---
Physician Documentation [facility] Name: Veronica Stevens Age: 61 yrs Sex: Female : 1960 Arrival Date: 06/07/2022 Time: 12:59 Bed 30 Private MD: ED Physician Vincent Castillo HPI: 06/07 16:16 This 61 yrs old Female presents to ER via Wheelchair with complaints of alexi Shortness Of Breath, Doesn't Feel Right, Vaginal Bleeding. Historical: - Allergies: 13:17 Codeine; iw - PMHx: 13:17 COLON CA; CVA; Hypertension; TIA; iw - PSHx: 13:17 section; iw - Immunization history:: Adult Immunizations unknown. - Social history:: Smoking status: unknown. ROS: 16:19 Constitutional: Negative for fever, chills, and weight loss, Eyes: Negative for injury, alexi pain, redness, and discharge, ENT: Negative for injury, pain, and discharge, Neck: Negative for injury, pain, and swelling, Cardiovascular: Negative for chest pain, palpitations, and edema, Back: Negative for injury and pain, : Negative for injury, bleeding, discharge, and swelling, MS/Extremity: Negative for injury and deformity, Skin: Negative for injury, rash, and discoloration, Neuro: Negative for headache, weakness, numbness, tingling, and seizure, Psych: Negative for depression, anxiety, suicide ideation, homicidal ideation, and hallucinations, Allergy/Immunology: Negative for hives, rash, and allergies, Endocrine: Negative for neck swelling, polydipsia, polyuria, polyphagia, and marked weight changes, Hematologic/Lymphatic: Negative for swollen nodes, abnormal bleeding, and unusual bruising. 16:19 Respiratory: Positive for shortness of breath. 16:19 Abdomen/GI: Positive for abdominal pain, abdominal cramps, abdominal distension, of the right lower quadrant and left lower quadrant. Exam: 16:19 Constitutional: This is a well developed, well nourished patient who is awake, alert, alexi and in no acute distress. Head/Face: Normocephalic, atraumatic. Eyes: Pupils equal round and reactive to light, extra-ocular motions intact. Lids and lashes normal. Conjunctiva and sclera are non-icteric and not injected. Cornea within normal limits. Periorbital areas with no swelling, redness, or edema. ENT: Nares patent. No nasal discharge, no septal abnormalities noted. Tympanic membranes are normal and external auditory canals are clear. Oropharynx with no redness, swelling, or masses, exudates, or evidence of obstruction, uvula midline. Mucous membranes moist. Neck: Trachea midline, no thyromegaly or masses palpated, and no cervical lymphadenopathy. Supple, full range of motion without nuchal rigidity, or vertebral point tenderness. No Meningismus. Chest/axilla: Normal chest wall appearance and motion. Nontender with no deformity. No lesions are appreciated. Cardiovascular: Regular rate and rhythm with a normal S1 and S2. No gallops, murmurs, or rubs. Normal PMI, no JVD. No pulse deficits. Respiratory: Lungs have equal breath sounds bilaterally, clear to auscultation and percussion. No rales, rhonchi or wheezes noted. No increased work of breathing, no retractions or nasal flaring. Back: No spinal tenderness. No costovertebral tenderness. Full range of motion. Female : Normal external genitalia. Skin: Warm, dry with normal turgor. Normal color with no rashes, no lesions, and no evidence of cellulitis. MS/ Extremity: Pulses equal, no cyanosis. Neurovascular intact. Full, normal range of motion. Neuro: Awake and alert, GCS 15, oriented to person, place, time, and situation. Cranial nerves II-XII grossly intact. Motor strength 5/5 in all extremities. Sensory grossly intact. Cerebellar exam normal. Normal gait. Psych: Awake, alert, with orientation to person, place and time. Behavior, mood, and affect are within normal limits. 16:19 ECG was reviewed by the Attending Physician. 16:19 Abdomen/GI: Inspection: distension, that is mild, Bowel sounds: normal, Palpation: moderate abdominal tenderness, in the right lower quadrant and left lower quadrant, Liver: no appreciated palpable abnormalities, Hernia: not appreciated. 16:23 ECG was reviewed by the Attending Physician. [facility] Vital Signs: 13:14 BP 149 / 93; Pulse 90; Resp 16; Temp 98.4; Pulse Ox 100% on R/A; Weight 68.04 kg; iw Height 5 ft. 0 in. (152.40 cm); 15:53 BP 172 / 111; Pulse 74; Resp 17; Pulse Ox 99% on R/A; ld1 16:45 BP 151 / 92; Pulse 72; Resp 20; Pulse Ox 99% on R/A; eh3 17:45 BP 157 / 94; Pulse 78; Resp 19; Pulse Ox 100% ; eh3 18:45 BP 155 / 92; Pulse 84; Resp 19; Pulse Ox 99% on R/A; eh3 13:14 Body Mass Index 29.29 (68.04 kg, 152.40 cm) iw MDM: 14:29 Patient medically screened. [facility] 16:22 Differential diagnosis: Bronchitis CHF exacerbation, pneumonia, Pneumothorax pulmonary alexi edema, Pulmonary Embolism reactive airway disease. Antibiotic administration: CIPRO/FLAGYL. The patient's Wells Deep Vein Thrombosis Score was calculated as follows: Malignancy. The patient's pulmonary embolism risk score was calculated as follows: malignancy Total Score: 0-2 points. This patient was found to be at low risk for a pulmonary embolism by using the Well's assessment criteria. Immunization status: Influenza vaccine: Not up to date due to patient refusal. Data reviewed: vital signs, nurses notes, lab test result(s), EKG, radiologic studies, CT scan, plain films, ultrasound. Data interpreted: public relations consultant: rate is 74 beats/min, rhythm is regular, Pulse oximetry: on room air is 99 %. Test interpretation: by ED physician or midlevel provider: ECG, plain radiologic studies. Counseling: I had a detailed discussion with the patient and/or guardian regarding: the historical points, exam findings, and any diagnostic results supporting the discharge/admit diagnosis, lab results, radiology results, the need for outpatient follow up, for definitive care, 06/07 13:33 Order name: Basic Metabolic Panel; Complete Time: 16: [facility] 06/07 13:33 Order name: CBC with Diff; Complete Time: 16: [facility] 06/07 13:33 Order name: Troponin HS; Complete Time: 16: [facility] 06/07 14:30 Order name: Lipase; Complete Time: 16:07 [facility] 06/07 14:30 Order name: SARS RAPID; Complete Time: 16:07 [facility] 06/07 16:18 Order name: LFT's; Complete Time: 16:44 [facility] 06/07 13:33 Order name: XRAY Chest (1 view); Complete Time: 16:16 [facility] 06/07 16:15 Order name: US Transvaginal Study (Probe) [facility] 06/07 16:15 Order name: CT Abd/Pelvis - IV Contrast Only [facility] 06/07 16:17 Order name: CT Chest For PE Angio; Complete Time: 17:39 [facility] 06/07 17:40 Order name: Urine Culture [facility] 06/07 17:40 Order name: Urine Microscopic Only [facility] 06/07 18:15 Order name: Urine Dipstick-Ancillary; Complete Time: 18:25 EDMS 06/07 13:33 Order name: EKG; Complete Time: 13:34 [facility] 06/07 13:33 Order name: Cardiac monitoring; Complete Time: 13:40 [facility] 06/07 13:33 Order name: EKG - Nurse/Tech; Complete Time: 13:40 [facility] 06/07 13:33 Order name: IV Saline Lock; Complete Time: 15:07 [facility] 06/07 13:33 Order name: Labs collected and sent; Complete Time: 15:07 [facility] 06/07 13:33 Order name: O2 Per Protocol; Complete Time: 13:55 [facility] 06/07 13:33 Order name: O2 Sat Monitoring; Complete Time: 13:55 [facility] 06/07 16:25 Order name: IV Saline Lock - Large Bore; Complete Time: 18:33 [facility] 06/07 17:40 Order name: Urine Dipstick-Ancillary (obtain specimen); Complete Time: 18:16 alexi EC:23 Rate is 69 beats/min. Rhythm is regular. QRS [place] is Normal. SC interval is normal. QRS alexi interval is normal. QT interval is prolonged at 482 msec. No Q waves. T waves are Inverted in leads I, aVL. No ST changes noted. Clinical impression: NSR w/ Non-specific ST/T Changes and No evidence of ischemia. Interpreted by me. Reviewed by me. Administered Medications: 16:13 Discontinued: NS 0.9% 1000 ml IV at 125 ml/hr continuous alexi 18:33 Discontinued: NS 0.9% with KCl 20 mEq/L 1000 ml IV at 125 ml/hr continuous alexi 15:10 Drug: NS 0.9% 1000 ml Route: IV; Rate: 125 ml/hr; Site: right forearm; ld1 19:05 Follow up: IV Intake: 350ml eh3 15:13 Drug: Phenergan (promethazine) 12.5 mg Route: IVP; Site: right forearm; ld1 15:13 Follow up: Response: No adverse reaction ld1 15:13 Drug: fentaNYL (PF) 25 mcg Route: IVP; Site: right forearm; ld1 15:13 Follow up: Response: No adverse reaction ld1 16:08 Follow up: Response: Pain is unchanged, physician notified ld1 17:23 Drug: fentaNYL (PF) 50 mcg Route: IVP; Site: right forearm; eh3 18:28 Follow up: Response: Pain is decreased eh3 17:23 Drug: Zofran (Ondansetron) 4 mg Route: IVP; Site: right forearm; eh3 18:17 Follow up: Response: Nausea is decreased eh3 17:23 Drug: NS 0.9% 500 ml Route: IV; Rate: bolus; Site: right forearm; eh3 18:07 Follow up: IV Status: Completed infusion; IV Intake: 500ml eh3 17:23 Drug: Flagyl (metroNIDAZOLE) 500 mg Volume: 100 ml; Route: IVPB; Rate: 200 ml/hr; eh3 Infused Over: 30 mins; Site: right forearm; 18:08 Follow up: Response: No adverse reaction; IV Status: Completed infusion; IV Intake: eh3 100ml 18:33 Follow up: Response: No adverse reaction iw 18:07 Drug: NS 0.9% with KCl 20 mEq/L 1000 ml Route: IV; Rate: 125 ml/hr; Site: right forearm;eh3 19:05 Follow up: IV Intake: 50ml eh3 18:33 Drug: Cipro (ciprofloxacin) 400 mg Volume: 200 ml; Route: IVPB; Infused Over: 60 mins; iw Site: right antecubital; 20:32 Follow up: Response: No adverse reaction; IV Status: Completed infusion; IV Intake: as6 100ml 18:55 Drug: Rocephin (cefTRIAXone) 1 grams Route: IV; Rate: per protocol; Site: right forearm;eh3 20:32 Follow up: Response: No adverse reaction; IV Status: Completed infusion; IV Intake: [id number] 18:55 Drug: Potassium Effervescent Tablet 25 mEq Route: PO; eh3 20:32 Follow up: Response: No adverse reaction as6 18:59 Drug: Phenergan (promethazine) 12.5 mg Route: IVP; Site: right antecubital; ld1 20:32 Follow up: Response: No adverse reaction as6 Disposition Summary: 06/07/22 18:25 Discharge Ordered Location: Home alexi Problem: new alexi Symptoms: have improved alexi Condition: Stable alexi Diagnosis - Pelvic and perineal pain alexi - Abnormal uterine and vaginal bleeding, unspecified alexi - Alcohol abuse, uncomplicated alexi - UTI/ Urinary tract infection, site not specified alexi Followup: alexi - With: Private Physician - When: 2 - 3 days - Reason: Recheck today's complaints, Re-evaluation by your physician Followup: alexi - With: - When: 2 - 3 days - Reason: Recheck today's complaints, Re-evaluation by your physician Discharge Instructions: - Discharge Summary Sheet alexi - Dysuria alexi - Pelvic Pain, Female alexi - Pelvic Pain, Female, [id number] alexi - Urinary Tract Infection, Adult alexi - Urinary Tract Infection, Adult, [id number] alexi - Alcohol Abuse and Nutrition [facility] Forms: - Medication Reconciliation Form [facility] - Thank You Letter [facility] - Antibiotic Education [facility] - Prescription Opioid Use [facility] Prescriptions: - Zofran 4 mg Oral Tablet - take 1 tablet by ORAL route every 12 hours As needed; 20 tablet; Refills: 0, [facility] Product Selection Permitted - Cipro 500 mg Oral Tablet - take 1 tablet by ORAL route every 12 hours for 7 days; 14 tablet; Refills: 0, [facility] Product Selection Permitted - dicyclomine 20 mg Oral Tablet - take 1 tablet by ORAL route 4 times per day; 28 tablet; Refills: 0, Product [facility] Selection Permitted - Bactrim DS 800-160 mg Oral Tablet - take 1 tablet by ORAL route every 12 hours for 7 days; 14 tablet; Refills: 0, [facility] Product Selection Permitted Signatures: Dispatcher [employer] EDNE Vincent Castillo MD MD cha Williams, Irene, RN RN iw Khadijah Gonzalez RN RN ld1 Rissa Womack RN RN 3 Dung Puente RN as6 Corrections: (The following items were deleted from the chart) 16:24 16:19 Rate is 69 beats/min. Rhythm is regular. QRS [place] is Normal. SC interval is alexi normal. QRS interval is normal. QT interval is normal. No Q waves. T waves are Normal. T waves are Inverted in leads I, aVL. No ST changes noted. Clinical impression: NSR w/ Non-specific ST/T Changes and No evidence of ischemia. Interpreted by me. Reviewed by me. alexi
--- NOTE | 2022-06-07 18:26 | ER ---
Nurse's Notes [facility] Name: Veronica Stevens Age: 61 yrs Sex: Female : 1960 Arrival Date: 06/07/2022 Time: 12:59 Bed 30 Private MD: Diagnosis: Pelvic and perineal pain;Abnormal uterine and vaginal bleeding, unspecified;Alcohol abuse, uncomplicated;UTI/ Urinary tract infection, site not specified Presentation: 06/07 13:14 Chief complaint: Patient states: I've had COVID and I can;t seem to get over it, I had iw a uterus problem and I came down with COVID and I haven;t been able to take care of it, states she is having abnormal vaginal bleeding for months, was diagnosed with COVID last week, my stomach is rock hard, I'm nauseous, I'm so weak, no vomiting or diarrhea , has not appetite, is not eating and drinking like she normally does. Is normally a daily drinker but hasn't had a drink in two days. Coronavirus screen: Client presents with at least one sign or symptom that may indicate coronavirus-19. Ebola Screen: Patient negative for fever greater than or equal to 101.5 degrees Fahrenheit, and additional compatible Ebola Virus Disease symptoms Patient denies exposure to infectious person. Patient denies travel to an Ebola-affected area in the 21 days before illness onset. No symptoms or risks identified at this time. Initial Sepsis Screen: Does the patient meet any 2 criteria? No. Patient's initial sepsis screen is negative. Does the patient have a suspected source of infection? No. Patient's initial sepsis screen is negative. Risk Assessment: Do you want to hurt yourself or someone else? Patient reports no desire to harm self or others. Onset of symptoms was May 31, 2022. 13:14 Method Of Arrival: Wheelchair iw 13:14 Acuity: PUSHPA 3 iw Historical: - Allergies: 13:17 Codeine; iw - PMHx: 13:17 COLON CA; CVA; Hypertension; TIA; iw - PSHx: 13:17 section; iw - Immunization history:: Adult Immunizations unknown. - Social history:: Smoking status: unknown. Screenin:40 Abuse screen: Denies threats or abuse. Denies injuries from another. Nutritional ld1 screening: No deficits noted. Tuberculosis screening: No symptoms or risk factors identified. Fall Risk None identified. Assessment: 13:40 General: Appears distressed, uncomfortable, Behavior is cooperative, appropriate for ld1 age, anxious. Pain: Complains of pain in suprapubic area Pain does not radiate. Pain currently is 10 out of 10 on a pain scale. Quality of pain is described as aching, dull, Pain began 2 weeks Is continuous. Cardiovascular: Capillary refill < 3 seconds Patient's skin is warm and dry. Rhythm is sinus rhythm. Respiratory: Airway is patent Respiratory effort is even, unlabored. GI: Abdomen is flat, non-distended, Abd is soft and non tender X 4 quads. Abd is rigid in suprapubic area Reports cramping, intolerance of fluids, intolerance of food, nausea. : No signs and/or symptoms were reported regarding the genitourinary system. EENT: No signs and/or symptoms were reported regarding the EENT system. Derm: No signs and/or symptoms reported regarding the dermatologic system. Musculoskeletal: No signs and/or symptoms reported regarding the musculoskeletal system. 15:53 Reassessment: No changes from previously documented assessment. Patient and/or family ld1 updated on plan of care and expected duration. Pain level reassessed. Patient states symptoms have not improved. Vital Signs: 13:14 BP 149 / 93; Pulse 90; Resp 16; Temp 98.4; Pulse Ox 100% on R/A; Weight 68.04 kg; iw Height 5 ft. 0 in. (152.40 cm); 15:53 BP 172 / 111; Pulse 74; Resp 17; Pulse Ox 99% on R/A; ld1 16:45 BP 151 / 92; Pulse 72; Resp 20; Pulse Ox 99% on R/A; eh3 17:45 BP 157 / 94; Pulse 78; Resp 19; Pulse Ox 100% ; eh3 18:45 BP 155 / 92; Pulse 84; Resp 19; Pulse Ox 99% on R/A; eh3 13:14 Body Mass Index 29.29 (68.04 kg, 152.40 cm) iw ED Course: 12:59 Patient arrived in ED. am2 13:17 Triage completed. iw 13:17 Arm band placed on. iw 13:32 Rissa Womack, RN is Primary Nurse. eh3 13:41 Bed in low position. Call light in reach. Side rails up X 1. Door closed. Noise mb7 minimized. Warm blanket given. Client placed on continuous cardiac and pulse oximetry monitoring. NIBP monitoring applied. park warden on. 13:47 Primary Nurse role handed off by Rissa Womack, GLORIA bd 13:55 Rissa Womack, GLORIA is Primary Nurse. eh3 14:26 Missed attempt(s): 20 gauge in left antecubital area. Bleeding controlled, band aid mb7 applied, catheter tip intact. 14:29 Vincent Castillo MD is Attending Physician. alexi 14:52 XRAY Chest (1 view) In Process Unspecified. EDMS 15:07 Initial lab(s) drawn, by me, sent to lab. COVID swab sent to lab. Inserted saline lock: em1 22 gauge in right forearm, using aseptic technique. Blood collected. 15:10 SARS RAPID Sent. ld1 15:14 SARS RAPID Sent. ld1 17:19 CT Abd/Pelvis - IV Contrast Only In Process Unspecified. EDMS 17:20 CT Chest For PE Angio In Process Unspecified. EDMS 17:30 Assisted to bathroom. eh3 18:16 Urine Microscopic Only Sent. eh3 18:16 Urine Culture Sent. eh3 18:23 US Transvaginal Study (Probe) In Process Unspecified. EDMS 18:25 Connie Cabrera MD is Referral Physician. alexi 18:33 Urine Culture Sent. iw 18:48 Urine Microscopic Only Sent. eh3 20:33 No provider procedures requiring assistance completed. IV discontinued, intact, as6 bleeding controlled, No redness/swelling at site. Pressure dressing applied. Administered Medications: 16:13 Discontinued: NS 0.9% 1000 ml IV at 125 ml/hr continuous alexi 18:33 Discontinued: NS 0.9% with KCl 20 mEq/L 1000 ml IV at 125 ml/hr continuous alexi 15:10 Drug: NS 0.9% 1000 ml Route: IV; Rate: 125 ml/hr; Site: right forearm; ld1 19:05 Follow up: IV Intake: 350ml eh3 15:13 Drug: Phenergan (promethazine) 12.5 mg Route: IVP; Site: right forearm; ld1 15:13 Follow up: Response: No adverse reaction ld1 15:13 Drug: fentaNYL (PF) 25 mcg Route: IVP; Site: right forearm; ld1 15:13 Follow up: Response: No adverse reaction ld1 16:08 Follow up: Response: Pain is unchanged, physician notified ld1 17:23 Drug: fentaNYL (PF) 50 mcg Route: IVP; Site: right forearm; eh3 18:28 Follow up: Response: Pain is decreased eh3 17:23 Drug: Zofran (Ondansetron) 4 mg Route: IVP; Site: right forearm; eh3 18:17 Follow up: Response: Nausea is decreased eh3 17:23 Drug: NS 0.9% 500 ml Route: IV; Rate: bolus; Site: right forearm; eh3 18:07 Follow up: IV Status: Completed infusion; IV Intake: 500ml eh3 17:23 Drug: Flagyl (metroNIDAZOLE) 500 mg Volume: 100 ml; Route: IVPB; Rate: 200 ml/hr; eh3 Infused Over: 30 mins; Site: right forearm; 18:08 Follow up: Response: No adverse reaction; IV Status: Completed infusion; IV Intake: eh3 100ml 18:33 Follow up: Response: No adverse reaction iw 18:07 Drug: NS 0.9% with KCl 20 mEq/L 1000 ml Route: IV; Rate: 125 ml/hr; Site: right forearm;eh3 19:05 Follow up: IV Intake: 50ml eh3 18:33 Drug: Cipro (ciprofloxacin) 400 mg Volume: 200 ml; Route: IVPB; Infused Over: 60 mins; iw Site: right antecubital; 20:32 Follow up: Response: No adverse reaction; IV Status: Completed infusion; IV Intake: as6 100ml 18:55 Drug: Rocephin (cefTRIAXone) 1 grams Route: IV; Rate: per protocol; Site: right forearm;eh3 20:32 Follow up: Response: No adverse reaction; IV Status: Completed infusion; IV Intake: [id number] 18:55 Drug: Potassium Effervescent Tablet 25 mEq Route: PO; eh3 20:32 Follow up: Response: No adverse reaction as6 18:59 Drug: Phenergan (promethazine) 12.5 mg Route: IVP; Site: right antecubital; ld1 20:32 Follow up: Response: No adverse reaction as6 Medication: 13:40 VIS not applicable for this client. ld1 Intake: 18:07 IV: 500ml; Total: 500ml. eh3 18:08 IV: 100ml; Total: 600ml. eh3 19:05 IV: 350ml; Total: 950ml. eh3 19:05 IV: 50ml; Total: 1000ml. eh3 20:32 IV: 100ml; Total: 1100ml. as6 20:32 IV: 50ml; Total: 1150ml. as6 Outcome: 18:25 Discharge ordered by MD. truong 20:33 Discharged to home via wheelchair, with significant other. as6 20:33 Condition: stable 20:33 Discharge instructions given to patient, significant other, Instructed on discharge instructions, follow up and referral plans. medication usage, Demonstrated understanding of instructions, follow-up care, medications, Prescriptions given X 4. 20:33 Patient left the ED. as6 Signatures: Dispatcher [employer] EDMS Elizabeth Galaviz Corey, MD MD cha Williams, Irene, RN RN iw Jericho Guadalupe em1 Ashlie Chávez am2 Khadijah Gonzalez RN RN ld1 Dung Puente RN RN as6 Nubia Williamson 7 Rissa Womack, RN RN eh3 Corrections: (The following items were deleted from the chart) 13:18 13:14 Chief complaint: Patient states: I've had COVID and I can;t seem to get over it, iw I had a uterus problem and I came down with COVID and I haven;t been able to take care of it, states she is having abnormal vaginal bleeding for months, was diagnosed with COVID last week, my stomach is rock hard, I'm nauseous, I'm so weak, no vomiting or diarrhea , has not appetite, is not eating and drinking like she normally does iw
[2022-06-07] MEDS ORDERED: POTASSIUM 25 MEQ EFFERV TAB ONE (18:45)
[2022-06-07] MEDS ORDERED: CEFTRIAXONE 1000 MG/VIAL ONE (18:45)
--- NOTE | 2022-06-07 18:52 | RAD REPORT ---
EXAM DESCRIPTION: US - Transvaginal Study Probe - 06/07/2022 6:21 pm CLINICAL HISTORY: Pelvic pain FINDINGS: The uterus measures 9 x 3 x 4 cm. A fibroid is not seen. The evaluation of endometrium is limited. A fibroid is not seen. Small amount of fluid within the cervical canal Limited evaluation the ovaries secondary to overlying bowel gas The right and left adnexa unremarkable No significant free fluid is seen. IMPRESSION: Small amount of fluid within the cervical canal Evaluation of the endometrium was limited
[2022-06-07 18:54] LABS: Urine Bacteria 20-50 /HPF (<20); Urine Mucus 3+ /HPF (None Seen)
[2022-06-07 22:59] VITALS: TEMP 98.4
[2022-06-07 23:24] VITALS: BP 155/92; O2SAT 99
--- NOTE | 2022-06-08 15:40 | EKG ---
Test Date: 2022-06-07 Test Time: 13:34:19 [employer]: MB MEASUREMENT RESULTS: Intervals: Rate: 69 WY: 158 QRSD: 62 QT: 450 QTc: 482 Jachin: P: 73 WY: 158 QRS: 57 T: 96 INTERPRETIVE STATEMENTS: Normal sinus rhythm Nonspecific T wave abnormality Prolonged QT Abnormal ECG Compared to ECG 08/23/2021 09:00:09 No significant changes Electronically Signed On 06-08-22 15:38:43 CDT by Filiberto Zabala
== END 2022-06-07 20:33 | disposition home or self-care (01) ==
LOC: ER 12:56
DX: N39.0 Urinary tract infection, site not specified (principal); N93.9 Abnormal uterine and vaginal bleeding, unspecified; F10.10 Alcohol abuse, uncomplicated; I10 Essential (primary) hypertension; Z85.038 Personal history of other malignant neoplasm of large intestine; Z88.5 Allergy status to narcotic agent; Z20.822 Contact with and (suspected) exposure to COVID-19
CPT/HCPCS: 93005; 87088; 85025; 87086; 80048; 36415; 80076; 84484; 83690; 71275; 74177; 71045; 76830; 99284; 87811; Q9967; J2550 ×2; J3010 ×2; J7040; J7030; J2405; J0744; J3480; 81003; 81015; 87077; 87186